=== PATIENT | female | born 1965 | race African-American/Black ===

== ENCOUNTER 2016-04-30 06:35 | Day surgery (SDC) | payer OTHER ==
[2016-04-29 16:53] VITALS: BMI 31.6
[2016-04-30] MEDS ORDERED: DEXAMETHASONE SOD PHOSPHATE 4 MG/1 ML VIAL ONE (07:28)
[2016-04-30] MEDS ORDERED: LIDOCAINE HCL 2% (20ML MULTI-DOSE VIAL) NR ONE (07:29)
[2016-04-30] MEDS ORDERED: MIDAZOLAM HCL 2 MG/2 ML SINGLE DOSE VIAL ONE (07:29)
[2016-04-30] MEDS ORDERED: PROPOFOL 20 ML ONE (07:30)
[2016-04-30] MEDS ORDERED: oxyCODONE HCL 5 MG TABLET PO PRN (08:48)
[2016-04-30] MEDS ORDERED: ONDANSETRON 4 MG/2 ML VIAL IVPUSH PRN (08:48)
[2016-04-30] MEDS ORDERED: ACETAMINOPHEN 1000 MG/100 ML VIAL (NON FORMULARY) IVPB PRN (08:49)
[2016-04-30] MEDS ORDERED: LACTATED RINGERS SOLUTION 1,000 ML IV SCH (09:00)
[2016-04-30 09:34] VITALS: TEMP 97.9
[2016-04-30] MEDS ORDERED: oxyCODONE HCL 5 MG TABLET ONE (10:02)
[2016-04-30 11:15] VITALS: PULSE 78
--- NOTE | 2016-04-30 11:22 | OP ---
DATE OF OPERATION: 04/30/2016 PREOPERATIVE DIAGNOSIS: Postmenopausal menorrhagia, fibroid uterus. OPERATIVE PROCEDURE: Hysteroscopy, dilatation and curettage, and endocervical curettage. SURGEON: Corina Hull MD ANESTHESIA: MAC. ESTIMATED BLOOD LOSS: Approximately 10 mL. ANESTHESIOLOGIST: Dr. Gregg Mancuso DESCRIPTION OF PROCEDURE: This patient was brought to the operating room, placed in the supine position, given anesthesia by Dr. Mancuso and then, placed in the lithotomy position. The patient was examined. The uterus was noted to be enlarged. Typical fibroid uterus measuring 12-14 weeks size. Adnexa not palpable. The speculum was placed into the vagina after the vagina had been prepped and draped. The anterior lip of the cervix was grasped with a tenaculum. The uterus was sounded to 11 cm. The cervix was dilated with Fisher dilators. Hysteroscopy was carried out. Hysteroscopy revealed the endometrial cavity to be bloody with clots. Visualization was poor because of the blood. After this was done, the cervix was then dilated with Fisher dilators until a medium-sized curette was used to do the dilatation and curettage. A scanty amount of tissue was obtained. Blood clots were obtained with the dilatation and curettage. Hemostasis was good. An endocervical curettage was carried out. Hemostasis was good. A followup hysteroscopy after the procedure was completed revealed hemostasis was good and the visual aspects of the internal endometrium were poor because of the blood clouding the area. However, the patient did well, and she was transferred to the recovery room with good vital signs, no complications noted. CORINA HULL M.D. [id number]
[2016-04-30 11:57] VITALS: BP 127/76
--- NOTE | 2016-05-01 10:34 | PATH ---
Surgical Pathology Report Patient Name: ROHAN HAND [facility]. Rec. #: [id number] /Age/Gender: 1965 (Age: 51) / F Account: [id number] Location: [facility] SURGICAL Taken: 04/30/2016 Received: 04/30/2016 Reported: 05/01/2016 Physicians: Tobias Pryor M.D. Specimen(s) Received A: ENDOMETRIAL CURETTINGS B: ENDOCERVICAL CURETTINGS Clinical History Menorrhagia, post menopausal bleeding, fibroids Final Diagnosis A. ENDOMETRIUM, CURETTING: ENDOMETRIAL TISSUE WITH EXTENSIVE STROMAL AND GLANDULAR BREAKDOWN. BENIGN SQUAMOUS EPITHELIUM, ENDOCERVICAL MUCOSA, AND CLOTTED BLOOD PRESENT. NO ENDOMETRIAL HYPERPLASIA OR CARCINOMA IDENTIFIED. B. ENDOCERVIX, CURETTING: SCANT BENIGN SQUAMOUS EPITHELIUM, PORTIONS OF STROMA, AND BENIGN GLANDULAR EPITHELIUM. Electronically Signed Thor De La O M.D. Gross Description A. Received in formalin, labeled "endometrial curettings," is a 3.7 x 2.5 x 0.3 cm aggregate of frederick red soft tissue fragments admixed with blood clot. The formalin is filtered and the specimen is entirely submitted in 2 cassettes. B. Received in formalin, labeled "endocervical curettings," and a 1.0 x 0.6 x 0.2 cm aggregate of frederick red soft tissue fragments admixed with blood clot. The formalin is filtered and the specimen is entirely submitted in one cassette. 04/30/201604/30/2016
== END 2016-04-30 11:58 | disposition home or self-care (01) ==
LOC: JASU-SURG 06:35
PROVIDERS: ATTEND Obstetrics & Gynecology
PROC: 0UDB8ZX Extraction of Endometrium, Via Natural or Artificial Opening Endoscopic, Diagnostic (ICD-10-PCS; principal; 2016-04-30 08:00)
DX: N95.0 Postmenopausal bleeding (principal); D25.9 Leiomyoma of uterus, unspecified
CPT/HCPCS: 84703; 88305-TC; 94760

== ENCOUNTER 2016-12-21 11:05 | Inpatient (IN) | payer OTHER ==
--- NOTE | 2016-12-21 13:16 | PDOC ---
History of Present Illness - General History Source: Patient Exam Limitations: No Limitations - History of Present Illness Initial Comments: 12/21/16 14:26 Patient is a 51 year old female with no significant past medical history who presents to the ED with complaints of diffuse abdominal pain that began wednesday afternoon. Patient reports abdominal pain began suddenly on wednesday and has been constant throughout the weekend. She reports the abdominal pain is a localized sharp pain that is rated a 10/10 in intensity. Denies chest pain, SOB. Denies fevers, chills. Denies out of state travel. Denies contact with sick individuals. Denies dysuria, constipation, diarrhea. Denies any other symptoms. Allergies: None Social history: No smoking. No alcohol. No illicit drugs. Surgical history: None PMD: Dr. Manzo <Chaitanya Trotter - Last Filed: 12/21/16 18:05> <Alberto Mancuso - Last Filed: 12/21/16 18:20> - General Chief Complaint: Pain, Acute Stated Complaint: ABD PAIN (PCP SENT) Time Seen by Provider: 12/21/16 13:16 Past History <Chaitanya Trotter - Last Filed: 12/21/16 18:05> - Past Medical History Anemia: Yes Asthma: No Cancer: No Cardiac Disorders: No CVA: No COPD: No CHF: No Dementia: No Diabetes: No GI Disorders: No Disorders: No HTN: No Hypercholesterolemia: No Liver Disease: No Seizures: No Thyroid Disease: No - Surgical History Abdominal Surgery: No Appendectomy: No Cardiac Surgery: No Cholecystectomy: No Lung Surgery: No Neurologic Surgery: No Orthopedic Surgery: No - Immunization History Immunization Up to Date: Yes - Suicide/Smoking/Psychosocial Hx Smoking History: Never smoked Have you smoked in the past 12 months: No Hx Alcohol Use: No Drug/Substance Use Hx: No Substance Use Type: None <Alberto Mancuso - Last Filed: 12/21/16 18:20> - Past Medical History Allergies/Adverse Reactions: Allergies Allergy/AdvReac Type Severity Reaction Status Date / Time No Known Drug Allergies Allergy Verified 12/21/16 11:34 Home Medications: Ambulatory Orders Cetirizine HCl [Zyrtec -] 10 mg PO DAILY 04/29/16 Naproxen Sodium [Aleve] 440 mg PO PRN PRN 04/29/16 Review of Systems - Review of Systems Able to Perform ROS?: Yes Comments:: 12/21/16 14:26 GENERAL/CONSTITUTIONAL: No fever or chills. No weakness. HEAD, EYES, EARS, NOSE AND THROAT: No change in vision. No ear pain or discharge. No sore throat. CARDIOVASCULAR: No chest pain or shortness of breath. RESPIRATORY: No cough, wheezing, or hemoptysis. GASTROINTESTINAL: No nausea, vomiting, diarrhea or constipation. GENITOURINARY: No dysuria, frequency, or change in urination. MUSCULOSKELETAL: +Abdominal pain. No joint or muscle swelling or pain. No neck or back pain. SKIN: No rash NEUROLOGIC: No headache, vertigo, loss of consciousness, or change in strength/ sensation. ENDOCRINE: No increased thirst. No abnormal weight change. HEMATOLOGIC/LYMPHATIC: No anemia, easy bleeding, or history of blood clots. ALLERGIC/IMMUNOLOGIC: No hives or skin allergy. All Other Systems: Reviewed and Negative <Chaitanya Trotter - Last Filed: 12/21/16 18:05> *Physical Exam - Vital Signs Last Vital Signs Temp Pulse Resp BP Pulse Ox 97.6 F 100 H 20 125/74 100 12/21/16 11:35 12/21/16 11:35 12/21/16 11:35 12/21/16 11:35 12/21/16 11:35 - Physical Exam Comments: 12/21/16 14:26 GENERAL: Awake, alert, and fully oriented, in no acute distress HEAD: No signs of trauma EYES: PERRLA, EOMI, sclera anicteric, conjunctiva clear ENT: Auricles normal inspection, hearing grossly normal, nares patent, oropharynx clear without exudates. Moist mucosa NECK: Normal ROM, supple, no lymphadenopathy, JVD, or masses LUNGS: Breath sounds equal, clear to auscultation bilaterally. No wheezes, and no crackles HEART: +Tachycardic. Regular rate and rhythm, normal S1 and S2, no murmurs, rubs or gallops ABDOMEN: +Distended. +tener Right lower quadrant. +Tender left lower quadrant. Soft,, normoactive bowel sounds. No guarding, no rebound. No masses EXTREMITIES: Normal range of motion, no edema. No clubbing or cyanosis. No cords, erythema, or tenderness NEUROLOGICAL: Cranial nerves II through XII grossly intact. Normal speech, normal gait SKIN: Warm, Dry, normal turgor, no rashes or lesions noted. <Chaitanya Trotter - Last Filed: 12/21/16 18:05> - Vital Signs Last Vital Signs Temp Pulse Resp BP Pulse Ox 97.6 F 100 H 20 125/74 100 12/21/16 11:35 12/21/16 11:35 12/21/16 11:35 12/21/16 11:35 12/21/16 11:35 <Alberto Mancuso - Last Filed: 12/21/16 18:20> ED Treatment Course - LABORATORY CBC & Chemistry Diagram: 12/21/16 13:30 12/21/16 13:30 - ADDITIONAL ORDERS Additional order review: Laboratory Results 12/21/16 12/21/16 12/21/16 13:32 13:32 13:30 PT with INR 13.00 H INR 1.18 H Sodium 138 Potassium 3.6 Chloride 104 Carbon Dioxide 26 Anion Gap 8 BUN 10 D Creatinine 0.6 D Creat Clearance w eGFR > 60 Random Glucose 93 Calcium 8.9 Total Bilirubin 0.6 D AST 14 L D ALT 10 L D Alkaline Phosphatase 89 Total Protein 7.0 Albumin 2.9 L Lipase 66 L Serum , Qual Negative 12/21/16 13:30 RBC 3.79 MCV 82.1 MCHC 33.0 RDW 14.3 MPV 7.9 D Neutrophils % 70.1 D Lymphocytes % 20.4 D Monocytes % 7.8 Eosinophils % 1.0 Basophils % 0.7 <Chaitanya Trotter - Last Filed: 12/21/16 18:05> - LABORATORY CBC & Chemistry Diagram: 12/21/16 13:30 12/21/16 13:30 <Alberto Mancuso - Last Filed: 12/21/16 18:20> Medical Decision Making - Medical Decision Making 12/21/16 18:[address] Manzo @17:45pm. Awaiting call back. Second page @17:59pm. Awaiting call back. Dr. Day called back @1801pm. Case discussed. <Chaitanya Trotter - Last Filed: 12/21/16 18:05> *DC/Admit/Observation/Transfer - Attestations Scribe Attestion: 12/21/16 14:27 Documentation prepared by Chaitanya Trotter, acting as medical file clerk for Alberto Mancuso MD/DO. <Chaitanya Trotter - Last Filed: 12/21/16 18:05> - Discharge Dispostion Admit: Yes - Attestations Physician Attestion: 12/21/16 13:16 I, Dr. Alberto Mancuso, attest that this document has been prepared under my direction and personally reviewed by me in its entirety. I further attest, that it accurately reflects all work, treatment, procedures and medical decision -making performed by me. <Alberto Mancuso - Last Filed: 12/21/16 18:20> Diagnosis at time of Disposition: Metastatic disease Abdominal pain Qualifiers: Abdominal location: unspecified location Qualified Code(s): R10.9 - Unspecified abdominal pain Ascites Qualifiers: Ascites type: other type Qualified Code(s): R18.8 - Other ascites - Discharge Dispostion Condition at time of disposition: Unchanged/Unknown - Referrals Referrals: Allison aMnzo MD [Primary Care Provider] -
[2016-12-21 13:40] LABS: BASOPHIL 0.7 % (0-2.0); MCH 27.1 pg (25.7-33.7); MEAN CELL VOLUME 82.1 fl (80-96); MEAN PLT VOLUME 7.9 fl (7.5-11.1); NEUTROPHILS 70.1 % (42.8-82.8); PLATELET COUNT 288 K/MM3 (134-434); RDW 14.3 % (11.6-15.6); WHITE BLOOD COUNT 5.2 K/mm3 (4.0-10.0)
[2016-12-21 13:59] LABS: INR 1.18 (0.82-1.09)
[2016-12-21 14:01] LABS: ALBUMIN 2.9 g/dl (3.4-5.0); ANION GAP 8 (8-16); BILIRUBIN,TOTAL 0.6 mg/dL (0.2-1.0); CALCIUM 8.9 mg/dL (8.5-10.1); CO2 26 mmol/L (21-32); CREATININE 0.6 mg/dL (0.55-1.02); GLUCOSE,RANDOM 93 mg/dL (74-106); SGOT/AST 14 U/L (15-37); SGPT/ALT 10 U/L (12-78)
[2016-12-21 14:02] LABS: ALK PHOS 89 U/L (45-117)
[2016-12-21] MEDS: ACETAMINOPHEN 325 MG TABLET (FP) PO PRN (23:23)
[2016-12-21 23:37] VITALS: BMI 33.7
[2016-12-22] MEDS ORDERED: FLU VACCINE QUAD 60 MCG/0.5 ML (MDV 17-18) IM ONE (08:00)
--- NOTE | 2016-12-22 09:40 | HP ---
Admitting History and Physical - Primary Care Physician PCP: Allison Manzo - Admission Chief Complaint: abdominal distension History of Present Illness: for past 5 days developed abdominal distension, poor appetite and some constipation. no nausea, no vomiting, no fever, no chills has been in her usual state of health until now works out regularly, no smoking, no drinking History Source: Patient Limitations to Obtaining History: No Limitations - Past Medical History ...LMP: 04/29/16 Endocrine: Yes: Diabetes Mellitus (resolved after weight loss), Other (Obesity) - Past Surgical History Additional Past Surgical History: gastric sleeve surgery at [facility] in 2013 uterine polyps, s/p D+C Apr 2016 - Smoking History Smoking history: Never smoked Have you smoked in the past 12 months: No - Alcohol/Substance Use Hx Alcohol Use: No - Social History Usual Living Arrangement: Yes: With Spouse History of Recent Travel: No Home Medications - Allergies Allergies/Adverse Reactions: Allergies Allergy/AdvReac Type Severity Reaction Status Date / Time No Known Drug Allergies Allergy Verified 12/21/16 11:34 - Home Medications Home Medications: Ambulatory Orders NK [No Known Home Medication] 12/21/16 Family Disease History - Family Disease History Family Disease History: Diabetes: Father, CA: Mother (lung) Review of Systems - Review of Systems Constitutional: reports: Loss of Appetite. denies: Chills, Fever, Night Sweats , Weakness Eyes: reports: No Symptoms HENT: reports: No Symptoms Neck: reports: No Symptoms Cardiovascular: reports: No Symptoms Respiratory: reports: No Symptoms Gastrointestinal: reports: Bloating, Constipation. denies: Abdominal Pain, Diarrhea, Indigestion, Nausea, Vomiting Genitourinary: reports: No Symptoms Musculoskeletal: reports: No Symptoms Integumentary: reports: No Symptoms Neurological: reports: No Symptoms Endocrine: reports: No Symptoms Hematology/Lymphatic: reports: No Symptoms Psychiatric: reports: No Symptoms Physical Examination Vital Signs: Vital Signs Temperature 98.4 F 12/22/16 01:47 Pulse Rate 102 H 12/22/16 01:47 Respiratory Rate 20 12/22/16 01:47 Blood Pressure 136/66 12/22/16 01:47 O2 Sat by Pulse Oximetry (%) 98 12/21/16 23:42 Constitutional: Yes: Well Nourished, No Distress, Calm Eyes: Yes: WNL, Conjunctiva Clear HENT: Yes: Atraumatic, Normocephalic Neck: Yes: Supple, Trachea Midline Cardiovascular: Yes: Regular Rate and Rhythm Respiratory: Yes: CTA Bilaterally Gastrointestinal: Yes: Normal Bowel Sounds, Soft, Distention, Hypoactive Bowel Sounds, Tenderness (lower abdominal tenderness without rebound or guarding) Musculoskeletal: Yes: WNL Extremities: Yes: WNL Edema: No Peripheral Pulses WNL: Yes Neurological: Yes: WNL Labs: Laboratory Results - last 24 hr 12/21/16 12/21/16 12/21/16 13:30 13:30 13:32 WBC 5.2 D RBC 3.79 Hgb 10.3 L Hct 31.2 L MCV 82.1 MCH 27.1 MCHC 33.0 RDW 14.3 Plt Count 288 D MPV 7.9 D Neutrophils % 70.1 D Lymphocytes % 20.4 D Monocytes % 7.8 Eosinophils % 1.0 Basophils % 0.7 PT with INR INR Sodium 138 Potassium 3.6 Chloride 104 Carbon Dioxide 26 Anion Gap 8 BUN 10 D Creatinine 0.6 D Creat Clearance w eGFR > 60 Random Glucose 93 Calcium 8.9 Total Bilirubin 0.6 D AST 14 L D ALT 10 L D Alkaline Phosphatase 89 Total Protein 7.0 Albumin 2.9 L Lipase 66 L Serum , Qual Negative 12/21/16 13:32 WBC RBC Hgb Hct MCV MCH MCHC RDW Plt Count MPV Neutrophils % Lymphocytes % Monocytes % Eosinophils % Basophils % PT with INR 13.00 H INR 1.18 H Sodium Potassium Chloride Carbon Dioxide Anion Gap BUN Creatinine Creat Clearance w eGFR Random Glucose Calcium Total Bilirubin AST ALT Alkaline Phosphatase Total Protein Albumin Lipase Serum , Qual Imaging - Results Cat Scan: Report Reviewed Problem List - Problems (1) Abdominal pain Code(s): R10.9 - UNSPECIFIED ABDOMINAL PAIN Qualifiers: Abdominal location: unspecified location Qualified Code(s): R10.9 - Unspecified abdominal pain (2) Ascites Code(s): R18.8 - OTHER ASCITES Qualifiers: Ascites type: other type Qualified Code(s): R18.8 - Other ascites Assessment/Plan will discuss CT findings with radiology paracentesis if indicated on CT GI/Ict Customer Support Officer consult requested
--- NOTE | 2016-12-22 09:54 | CON.NEURO ---
Consult Consult Specialty:: Neurology Referred by:: Divine Nolan Reason for Consultation:: Unsteady gait and altered hearing since Wednesday. - History of Present Illness Chief Complaint: Unsteady Gait and sound of drumbeat in her right ear since Wednesday. 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 No confusion, altered consciousness altered sensation, or hallucinations. She sings regularly and was singing quite well on Wednesday. - History Source History Provided By: Patient, Family Member, Medical Record Limitations to Obtaining History: No Limitations - Past Medical History [employer]IE[employer]: Yes: Other (obesity, s/p gastric sleeve with weight loss) ...LMP: 04/29/16 Endocrine: Yes: Diabetes Mellitus (resolved after weight loss), Other (Obesity) - Past Surgical History Additional Surgical History: Gastric sleeve - Alcohol/Substance Use Hx Alcohol Use: No - Smoking History Smoking history: Never smoked Have you smoked in the past 12 months: No - Social History Usual Living Arrangement: With Spouse Occupation: [employer] History of Recent Travel: No Home Medications - Allergies Allergies/Adverse Reactions: Allergies Allergy/AdvReac Type Severity Reaction Status Date / Time No Known Drug Allergies Allergy Verified 12/21/16 11:34 - Home Medications Home Medications: Ambulatory Orders NK [No Known Home Medication] 12/21/16 Family Disease History - Family Disease History Family Disease History: Diabetes: Father, CA: Mother (lung) Physical Exam-Neuro Vital Signs: Vital Signs Temperature 98.4 F 12/22/16 01:47 Pulse Rate 102 H 12/22/16 01:47 Respiratory Rate 20 12/22/16 01:47 Blood Pressure 136/66 12/22/16 01:47 O2 Sat by Pulse Oximetry (%) 98 12/21/16 23:42 Labs: INR, PTT INR 1.18 (0.82-1.09) H 12/21/16 13:32 - Neuro Exam Level Of Consciousness: Yes: Alert, Oriented to Person, Oriented to Place, Oriented to Time (able to recite the months of the year in reverse briskly and acurately) Eyes: Yes: PERRLA Speech: WNL Cranial Nerves II-XII Intact: Yes DTR's: 2+ Left Bicep, 2+ Right Bicep, 2+ Left Tricep, 2+ Right Tricep, 2+ Left Brachioradialis, 2+ Right Brachioradialis Babinski: Absent Response to light touch: Normal Response to pain prick: Normal Coordination: Normal: Finger to Nose, Heel to Alfaro, Precision Finger Tap, Pronator Drift Motor Strength: 5/5: Left Arm, Right Arm, Left Leg, Right Leg Gait: Other (occasional staggers (when turning) and unable to tandem.) Imaging - Results Cat Scan: Report Reviewed (ct abdomen) Problem List - Problems (1) Gait abnormality Assessment/Plan: unclear if central or peripheral, and if central, whether this is structural or metabolic. I'll order MRI brain, with and without gadolinium and B12 levels. If these are negative, I would suggest ENT evaluation. Dr. Ac to f/u tomorrow. Thanks. Jose Evans MD [facility] [phone] Code(s): R26.9 - UNSPECIFIED ABNORMALITIES OF GAIT AND MOBILITY
--- NOTE | 2016-12-22 10:22 | EKG ---
Test Reason : Blood Pressure : / mmHG Vent. Rate : 109 BPM Atrial Rate : 109 BPM P-R Int : 142 ms QRS Dur : 076 ms QT Int : 338 ms P-R-T Axes : 020 004 011 degrees QTc Int : 455 ms SINUS TACHYCARDIA PROBABLE LEFT ATRIAL ABNOEMALITY DECREASE IN QRS VOLTAGE IN LATERAL PRECORDIAL LEADS BASELINE ARTIFACTS WHEN COMPARED WITH ECG OF 29-APR-2016 17:26, VENT. RATE HAS INCREASED BY 40 BPM T WAVES ARE NOW UPRIGHT IN V2 QUESTIONABLE CHANGE IN INITIAL FORCES OF SEPTAL LEADS REPEAT EKG IF CLINICALLY INDICATED Confirmed by JORY ALSTON MD ([id number]) on 12/22/2016 10:22:41 AM Referred By: Confirmed By:JORY ALSTON MD
--- NOTE | 2016-12-22 10:25 | CONSULT ---
- Consultation REQUESTING PROVIDER: Jeff Gross - General Surgery CONSULT REQUEST: We have been asked to surgically evaluate this patient for gastric distension & discomfort PCP: Divine Nolan History Provided By: Patient and medical record Limitations to Obtaining History: No Limitations HPI: Called to eval 51 yo female w/ PMHx noted below. Com[facility] to [facility] ED w/ c/o gastric distension, loss of appetite and abd discomfort. Abd CT identified --> partially distended stomach w/ antral thickening, ascites. Thickened sb loopsin left mid-abd (inflamm vs. infectious). Low attenuation irregular densities in RLQ suggests peritoneal implants also alonf left lateral aspect of abd. Enlarged uterus with multiple fibroids (fundus). Left ovarian cyst. Denies fever, chills, diaphoresis, generalized weakness or malaise. Deneis CP, palpitations or peripheral edema. Denies cough, SOB or PASTRANA. Denies diarrhea, constipation, melena, hematochezia. Denies lymphadenopathy. LMP: 04/29/16 PMHx: DM (resolved s/p surgery) , obesity PSHx: Sleeve Gastrectomy at [facility] 2013, D&C 04/2016 (uterine polyps) Home Med: Denies taking any prescribed or OTC. Allergies: NKDA. ROS: CONSTITUTIONAL: Absent: SEE HPI. weight change CARDIOVASCULAR: Absent: SEE HPI. syncope, palpitations, irregular heart rate, lightheadedness, peripheral edema RESPIRATORY: Absent: SEE HPI. wheezing, stridor, hemoptysis GASTROINTESTINAL:Absent: SEE HPI GENITOURINARY: Absent: dysuria, frequency, urgency, hesitancy, hematuria, flank pain. MUSCULOSKELETAL: Absent: myalgia, arthralgia, joint swelling, back pain, neck pain SKIN: Absent: rash, itching, pallor HEMATOLOGIC/IMMUNOLOGIC: Absent: SEE HPI. easy bleeding, easy bruising NEUROLOGIC: Absent: headache, focal weakness, paresthesias, dizziness, unsteady gait, seizure, mental status changes PSYCHIATRIC: Absent: anxiety, depression, suicidal or homicidal ideation, hallucinations. PE: GENERAL: Awake, alert, oriented, in no acute distress. HEAD: NC. AT. EYES: PERRL, sclera anicteric, conjunctiva clear. NECK: Normal ROM, supple without lymphadenopathy, JVD, or masses. LUNGS: CTA bilat anteriorly COR: RRR ABD: Obese. Softly distended. Hypoactive bowel sounds x4. Mild LLQ/RLQ TTP (no guarding/rebound or rigidity) MUSCULOSKELETAL: No CVAT bilat UE: 2+ pulses, warm, well-perfused. No cyanosis. Cap refill <2 seconds. No peripheral edema. LE: 2+ pulses, warm, well-perfused. No calf tenderness. No peripheral edema. PSYCH: Cooperative. Good eye contact. Appropriate mood and affect. SKIN: Warm, dry, normal turgor, no rashes or lesions noted. Last Vital Signs Temp Pulse Resp BP Pulse Ox 98.4 F 102 H 20 136/66 98 12/22/16 01:47 12/22/16 01:47 12/22/16 01:47 12/22/16 01:47 12/21/16 23:42 CBC, BMP 12/21/16 13:30 12/21/16 13:30 INR, PTT INR 1.18 (0.82-1.09) H 12/21/16 13:32 Hepatic Panel Total Bilirubin 0.6 mg/dL (0.2-1.0) D 12/21/16 13:30 AST 14 U/L (15-37) L D 12/21/16 13:30 ALT 10 U/L (12-78) L D 12/21/16 13:30 Alkaline Phosphatase 89 U/L (45-117) 12/21/16 13:30 Albumin 2.9 g/dl (3.4-5.0) L 12/21/16 13:30 Problem List - Problems (1) Abdominal pain Assessment/Plan: IR --> Dr. Wise to perform paracentesis with pathology today (r/o peritoneal carcinomatosis vs. uterine CA) Recommend [facility] [employer] [facility]ER Consult Medical management per primary team CA 125 ordered Recommend NGT if patient +n/v No General Surgery intervention at this time but will cont to follow Above discussed with Dr. Gross and agrees Code(s): R10.9 - UNSPECIFIED ABDOMINAL PAIN Qualifiers: Abdominal location: unspecified location Qualified Code(s): R10.9 - Unspecified abdominal pain (2) Ascites Code(s): R18.8 - OTHER ASCITES Qualifiers: Ascites type: other type Qualified Code(s): R18.8 - Other ascites Visit type - Case Type Case Type: ED Admission - Emergency Emergency Visit: Yes ED Registration Date: 12/21/16 Care time: The patient presented to the Emergency Department on the above date and was hospitalized for further evaluation of their emergent condition. - New patient This patient is new to me today: Yes Date on this admission: 12/22/16
--- NOTE | 2016-12-22 11:59 | CONSULT ---
Consult Consult Specialty:: Gastroenterology Referred by:: Dr Titus Reason for Consultation:: distended abdomen - History of Present Illness History of Present Illness: A pleasant 51 yo female with acute onset abdominal distension resulting in pressure discomfort. No nausea, vomiting, dysphagia, odynophagia, changes in bowels. No weight loss, fever, chills. No hisoty of liver diases, chronic ETOH, or viral hepatitis. History of uneventful sleeve gastrectomy in 2013. EGD and colonoscopy were done preop and reported by the patient as normal. History of uterine bleeding earlier this year. S/P D&C 04/2016 with negative path. Has uterine fibroids. A CT on revealed thickened gastric wall, moderate ascites, peritonial implants and uterine "masses" described as fibroids. 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 No: GERD, GI Bleed, Inflamatory Bowel Disease, Pancreatitis, Peptic Ulcer Disease Hepatobiliary: No: Cirrhosis, Hepatitis B, Hepatitis C Reproductive: Yes: Fibroids, Other (bleeding, s/p D&C) ...LMP: 04/29/16 Heme/Onc: No: Bleeding Disorder Musculoskeletal: No: Chronic low back pain Rheumatology: Yes: Fibromyalgia. No: Vasculitis ENT: Yes: Sinusitis Endocrine: Yes: Diabetes Mellitus (resolved after weight loss), Other (Obesity) - Past Surgical History Past Surgical History: Yes: Colonoscopy (2012) Additional Surgical History: Gastric sleeve. EGD 2012 - Alcohol/Substance Use Hx Alcohol Use: No - Smoking History Smoking history: Never smoked Have you smoked in the past 12 months: No - Social History Usual Living Arrangement: With Spouse Occupation: [employer] History of Recent Travel: No Home Medications - Allergies Allergies/Adverse Reactions: Allergies Allergy/AdvReac Type Severity Reaction Status Date / Time No Known Drug Allergies Allergy Verified 12/21/16 11:34 - Home Medications Home Medications: Ambulatory Orders NK [No Known Home Medication] 12/21/16 Family Disease History - Family Disease History Family History: Unremarkable Family Disease History: Diabetes: Father, CA: Mother (lung) Review of Systems - Review of Systems Constitutional: denies: Chills, Fever, Lethargy, Unintentional Wgt. Loss HENT: denies: Difficult Swallowing Neck: denies: Lumps, Tenderness Cardiovascular: denies: Chest Pain, Palpitations, Shortness of Breath Respiratory: reports: No Symptoms Gastrointestinal: reports: Bloating, Other (acute abdominal distension). denies : Diarrhea, Dysphagia, Indigestion, Melena, Nausea, Rectal Bleeding, Vomiting, Vomiting Blood Genitourinary: reports: Vaginal Bleeding (d&c 04/2016) Musculoskeletal: denies: Back Pain Integumentary: reports: No Symptoms Endocrine: denies: Unexplained Weight Loss Hematology/Lymphatic: denies: Excessive Bleeding, Swollen Glands Psychiatric: reports: No Symptoms Physical Exam Vital Signs: Vital Signs Temperature 98.4 F 12/22/16 01:47 Pulse Rate 102 H 12/22/16 01:47 Respiratory Rate 20 12/22/16 01:47 Blood Pressure 136/66 12/22/16 01:47 O2 Sat by Pulse Oximetry (%) 98 12/21/16 23:42 Constitutional: Yes: Well Nourished, No Distress, Calm Eyes: Yes: Conjunctiva Clear HENT: Yes: Atraumatic, Normocephalic Neck: Yes: Supple Cardiovascular: Yes: Regular Rate and Rhythm Respiratory: Yes: Regular, CTA Bilaterally Gastrointestinal: Yes: Normal Bowel Sounds, Soft, Distention. No: Palpable Mass , Pulsatile Mass, Tenderness, Tenderness, Epigastrium, Tenderness, Rebound, Vomiting Musculoskeletal: No: Joint Stiffness, Joint Swelling Extremities: Yes: WNL Edema: No Integumentary: No: Jaundice, Rash Neurological: Yes: Alert, Oriented Psychiatric: No: Agitated Imaging - Results Cat Scan: Report Reviewed Problem List - Problems (1) Abnormal abdominal CT scan Code(s): R93.5 - ABN FINDINGS ON DX IMAGING OF ABD REGIONS, INC RETROPERITON (2) Ascites Code(s): R18.8 - OTHER ASCITES Qualifiers: Ascites type: other type Qualified Code(s): R18.8 - Other ascites Assessment/Plan Acute onset moderate ascites, no history of chronic liver disease, liver lesions, CHF. Abnormal peritoneal, uterine and gastric findings on CT. EGD was discussed with the patient and her PEDIATRIC INTENSIVE PHYSICIAN consultation Diagnostic/therapeutic parenthesis Visit type - Emergency Visit Emergency Visit: No - New Patient This patient is new to me today: Yes Date on this admission: 12/22/16 - Critical Care Critical Care patient: No
--- NOTE | 2016-12-22 13:38 | CON.OBG ---
Consult Consult Specialty:: Gynecology Reason for Consultation:: Abdominal Ascietis - History of Present Illness Chief Complaint: 51 yo P2 felt significant expension of abdominal girth on , had indigestion, anorexcia and difficulty with bowel movment, had enema on . Admited to the hospital 12/21/16 after finding of ascitis on CT. Patient just now had Parasthentesis and feels significantly better. 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 No: GERD, GI Bleed, Inflamatory Bowel Disease, Pancreatitis, Peptic Ulcer Disease Hepatobiliary: No: Cirrhosis, Hepatitis B, Hepatitis C ...LMP: 12/09/16 ([id number] day) ...: No ...: 5 (SAB x 3, D&C x 3) ...Para: 2 (c/section x 2) Heme/Onc: No: Anemia Musculoskeletal: No: Chronic low back pain Rheumatology: Yes: Fibromyalgia. No: Vasculitis ENT: Yes: Sinusitis Endocrine: Yes: Diabetes Mellitus (resolved after weight loss), Other (Obesity) - Past Surgical History Past Surgical History: Yes: Colonoscopy (2012), (twice) Additional Surgical History: Gastric sleeve. EGD 2012. 05/2016 Hysteroscopy D& C for irregular bleeding - Alcohol/Substance Use Hx Alcohol Use: No - Smoking History Smoking history: Never smoked Have you smoked in the past 12 months: No - Social History Usual Living Arrangement: With Spouse Occupation: 1[employer]3 [employer] History of Recent Travel: No Home Medications - Allergies Allergies/Adverse Reactions: Allergies Allergy/AdvReac Type Severity Reaction Status Date / Time No Known Drug Allergies Allergy Verified 12/21/16 11:34 - Home Medications Home Medications: Ambulatory Orders NK [No Known Home Medication] 12/21/16 Family Disease History - Family Disease History Family Disease History: Diabetes: Father, CA: Mother (lung) Review of Systems - Review of Systems Constitutional: reports: No Symptoms HENT: reports: No Symptoms Neck: reports: No Symptoms Cardiovascular: reports: No Symptoms Respiratory: reports: No Symptoms Gastrointestinal: reports: Bloating Genitourinary: reports: No Symptoms Breasts: reports: No Symptoms Reported (10/[address] [facility] Radiology negative) Musculoskeletal: reports: No Symptoms Integumentary: reports: No Symptoms Neurological: reports: No Symptoms Endocrine: reports: No Symptoms Hematology/Lymphatic: reports: No Symptoms Psychiatric: reports: No Symptoms Physical Exam-ASIAN STUDIES PROGRAM CHAIR Vital Signs: Vital Signs Temperature 98.4 F 12/22/16 01:47 Pulse Rate 102 H 12/22/16 01:47 Respiratory Rate 20 12/22/16 01:47 Blood Pressure 136/66 12/22/16 01:47 O2 Sat by Pulse Oximetry (%) 98 12/21/16 23:42 Constitutional: Yes: Well Nourished, Calm Eyes: Yes: WNL HENT: Yes: WNL Neck: Yes: WNL Cardiovascular: Yes: WNL Respiratory: Yes: WNL, CTA Bilaterally Gastrointestinal: Yes: WNL, Normal Bowel Sounds, Soft Pelvis: Yes: Mass, Tenderness (Palpable tender fibroid on the Left lower abdomen , reaching level of the umbilicus) External Genitalia: Yes: Normal Uterus: Yes: Enlarged, Tender Adnexa: Not Palpable: Left, Right Breast(s): Yes: WNL Musculoskeletal: Yes: WNL Extremities: Yes: WNL Edema: No Integumentary: Yes: WNL Neurological: Yes: WNL ...Motor Strength: WNL Psychiatric: Yes: WNL Assessment/Plan 51yo P2 with suddenly increased abdominal girth Ascietis on the CT scan s/p Paracentesis will follow Pathology Colonoscopy scheduled for tomorrow Patient has long standing h/o Fibroid Uterus Would recommend pelvic US for comparison with Office Sonograms She had recent 10/[address] Rivas - PAP 11/20/16 neg with neg HPV and 04/2016 negative Endometrial evaluation, via D&C so Metastatic Endometrial CA is unlikely source of ascieties However other ASIAN STUDIES PROGRAM CHAIR pathology: Ovarian, Fallopian tube CA is a possibility Additionally Pancreas, Small bowel and Colon Should be considered as possible source as well I would recommend CA 19-9 and CEA in addition to CA-125 Will follow findings of Parasentesis, Colonoscopy and MRI Recommend to use vein compression devices since risk of blood clotting increased in face of carcinogenesis Office record indicates: Mammogram 12/01/16 negative; PAP 11/20/16 neg with neg HPV US: 11/25/16: Uterus:Non gravid. Size: L-79mm W-90mm H-62mm, Position: Retroflexed, Fundal fibroid: Size: 74 x 72 x 57 mm; Ovaries: Left: Not seen.Right: Suboptimal visualization. L-37mm W-34, H-22mm Vol:10.013mL .
[2016-12-22 14:03] LABS: PLEURAL FLUID APPEARANCE HAZY; PLEURAL FLUID COLOR AMBER; PLEURAL FLUID SOURCE PLEURAL
[2016-12-22 14:39] LABS: GLUCOSE,PLEURAL FLUID 106.334; TOTAL PROTEIN,PLEURAL FLUID 5.409
[2016-12-22 14:49] LABS: CHLORIDE PLEURAL FLUID 108; PLEURAL FLUID BASOPHIL 1 %; PLEURAL FLUID LYMPHOCYTES 23 %; PLEURAL FLUID MACROPHAGES 41 %; PLEURAL FLUID NEUTROPHIL 26 %
[2016-12-22] MEDS: ACETAMINOPHEN 325 MG TABLET (FP) PO PRN ×2 (15:00→21:01)
[2016-12-23] MEDS ORDERED: PROPOFOL 20 ML ONE ×2 (07:43)
[2016-12-23] MEDS ORDERED: LIDOCAINE HCL/PF 2% SDV 5ML VIAL ONE (07:43)
--- NOTE | 2016-12-23 09:25 | PN ---
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 No confusion, altered consciousness altered sensation, or hallucinations. She sings regularly and was singing quite well on Wednesday. 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 (obesity, s/p gastric sleeve with weight loss) ...LMP: 04/29/16 Endocrine: Yes: Diabetes Mellitus (resolved after weight loss), Other (Obesity) - Past Surgical History Additional Surgical History: Gastric sleeve - Alcohol/Substance Use Hx Alcohol Use: No - Smoking History Smoking history: Never smoked Have you smoked in the past 12 months: No - Social History Usual Living Arrangement: With Spouse 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 History of Recent Travel: No Home Medications - Allergies Allergies/Adverse Reactions: Allergies Allergy/AdvReac Type Severity Reaction Status Date / Time No Known Drug Allergies Allergy Verified 12/21/16 11:34 - Home Medications Home Medications: Ambulatory Orders NK [No Known Home Medication] 12/21/16 Family Disease History - Family Disease History Family Disease History: Diabetes: Father, CA: Mother (lung) Physical Exam-Neuro Vital Signs: Vital Signs Temperature 99.4 F 12/23/16 07:57 Pulse Rate 94 H 12/23/16 08:17 Respiratory Rate 18 12/23/16 08:17 Blood Pressure 115/81 12/23/16 08:17 O2 Sat by Pulse Oximetry (%) 100 12/23/16 08:17 Labs: 12/21/16 13:30 12/21/16 13:30 - Neuro Exam Level Of Consciousness: Yes: Alert, Oriented to Person, Oriented to Place, Oriented to Time (able to recite the months of the year in reverse briskly and acurately) Eyes: Yes: PERRLA Speech: WNL Cranial Nerves II-XII Intact: Yes DTR's: 2+ Left Bicep, 2+ Right Bicep, 2+ Left Tricep, 2+ Right Tricep, 2+ Left Brachioradialis, 2+ Right Brachioradialis Babinski: Absent Response to light touch: Normal Response to pain prick: Normal Coordination: Normal: Finger to Nose, Heel to Alfaro, Precision Finger Tap, Pronator Drift Motor Strength: 5/5: Left Arm, Right Arm, Left Leg, Right Leg Gait: Other (occasional staggers (when turning) and unable to tandem.) Imaging - Results Cat Scan: Report Reviewed (ct abdomen) Problem List - Problems (1) Gait abnormality Assessment/Plan: vertigo- likley peripheral, though ? underlying malignancy so will obtain MRI BRAIn P ONC LINDSAY Ac [id number]
--- NOTE | 2016-12-23 09:30 | PN ---
Progress Note (short form) - Note Progress Note: Admitted with abd distension, ascites and unsteady gait s/p abd.paracentesis removed over 3000cc dark sanguineous fluid s/p EGD today which was normal feels better today Vital Signs Period Temp Pulse Resp BP Sys/Barbour Pulse Ox Last 24 Hr 98.7 F-99.4 F 94-113 18-22 110-136/69-87 98-100 [id number] lungs cta Abd soft NT, plapable firm Fibroids/mass in lower abdominal area no edema [id number] Imp new onset ascites of unknown etiology peritoneal lesions, large uterine fibroid EGD normal Plan MRI brain today pathology of ascites fluid will be available today or tomorrow will request oncology evaluation d/w pt, explained that findings are very suspicious of malignancy Problem List - Problems (1) Abdominal pain Code(s): R10.9 - UNSPECIFIED ABDOMINAL PAIN Qualifiers: Qualified Code(s): R10.9 - Unspecified abdominal pain (2) Ascites Code(s): R18.8 - OTHER ASCITES Qualifiers: Qualified Code(s): R18.8 - Other ascites
[2016-12-23] MEDS ORDERED: ENOXAPARIN NA (PORCINE) 40 MG/0.4 ML DISP.SYRIN SQ SCH (10:00)
--- NOTE | 2016-12-23 11:58 | PATH ---
Cytology Non-Gynecological Report Patient Name: ROHAN HAND [facility]. Rec. #: [id number] /Age/Gender: 1965 (Age: 51) / F Account: [id number] Location: [facility] MED/SURG Taken: 12/22/2016 Received: 12/22/2016 Reported: 12/23/2016 Physicians: Angela Olmedo M.D. Specimen(s) Received RIGHT LOWER QUADRANT ASCITES FLUID Clinical History None given Final Diagnosis ABDOMINAL FLUID, RIGHT LOWER QUADRANT, PARACENTESIS: SATISFACTORY FOR EVALUATION BENIGN (NO MALIGNANT CELLS IDENTIFIED) BENIGN AND REACTIVE MESOTHELIAL CELLS, BLOOD, AND WHITE BLOOD CELLS PRESENT. Comment: Recommend correlation with clinical findings and follow up as clinically indicated. This case was discussed with Dr. Nolan on December 23, 2016. Electronically Signed Thor De La O M.D. Gross Description A. Approximately 50 cc of yellow fluid received fixed in 50% alcohol. Two cytofunnels and one cellblock prepared. B. Approximately 6000 cc of yellow fluid received fresh. Two cytofunnels and one cellblock prepared.
--- NOTE | 2016-12-23 12:30 | CONSULT ---
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 Patient seen and examined . 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 No: GERD, GI Bleed, Inflamatory Bowel Disease, Pancreatitis, Peptic Ulcer Disease Hepatobiliary: No: Cirrhosis, Hepatitis B, Hepatitis C ...LMP: 12/09/16 (35kleip7 day) ...: No Musculoskeletal: No: Chronic low back pain Rheumatology: Yes: Fibromyalgia. No: Vasculitis ENT: Yes: Sinusitis Endocrine: Yes: Diabetes Mellitus (resolved after weight loss), Other (Obesity) - Past Surgical History Past Surgical History: Yes: Colonoscopy (2013), (twice) Additional Surgical History: Gastric sleeve. EGD 2012. 05/2016 Hysteroscopy D& C for irregular bleeding - Alcohol/Substance Use Hx Alcohol Use: No - Smoking History Smoking history: Never smoked Have you smoked in the past 12 months: No - Social History Usual Living Arrangement: With Spouse Occupation: [employer] History of Recent Travel: No Home Medications - Allergies Allergies/Adverse Reactions: Allergies Allergy/AdvReac Type Severity Reaction Status Date / Time No Known Drug Allergies Allergy Verified 12/21/16 11:34 - Home Medications Home Medications: Ambulatory Orders NK [No Known Home Medication] 12/21/16 Family Disease History - Family Disease History Family Disease History: Diabetes: Father, CA: Mother (lung) Physical Exam Vital Signs: Vital Signs Temperature 99.4 F 12/23/16 07:57 Pulse Rate 94 H 12/23/16 08:17 Respiratory Rate 18 12/23/16 08:17 Blood Pressure 115/81 12/23/16 08:17 O2 Sat by Pulse Oximetry (%) 100 12/23/16 08:17 Constitutional: Yes: Well Nourished, No Distress, Calm Eyes: Yes: Conjunctiva Clear, EOM Intact HENT: Yes: Atraumatic, Normocephalic Neck: Yes: Supple, Trachea Midline Cardiovascular: Yes: Regular Rate and Rhythm Respiratory: Yes: Regular, CTA Bilaterally Gastrointestinal: Yes: Normal Bowel Sounds, Soft, Abdomen, Obese Breast(s): Yes: WNL, Left, Right Extremities: Yes: WNL Edema: No Integumentary: Yes: WNL Neurological: Yes: Alert, Oriented Imaging - Results Cat Scan: Report Reviewed Assessment/Plan 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 -CT imaging with peritoneal nodules. -Cytology of the ascitic fluid did not show evidence of malignancy -CA 125 elevated -CEA/Ca 19 9 pending -Imaging.Tumor markers suspcious for primary DIRECTOR INPATIENT HEADACHE PROGRAM , ?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 -GI : s/p EGD -normal -will need definitive pathological diagnosis, the best way to obtain this to be determined. ?IR for peritoneal biopsy, ?DIRECTOR INPATIENT HEADACHE PROGRAM lap -d/Rebecca in detail over the phone -will follow closely.
[2016-12-23] MEDS ORDERED: DOCUSATE SODIUM 100 MG CAPSULE (FP) PO ONE (23:15)
[2016-12-24] MEDS ORDERED: PT OWN MED DRAWER 7, Y5N ONE (10:30)
[2016-12-24] MEDS: LORATADINE 10 MG TABLET PO SCH (10:45)
[2016-12-24] MEDS: FERROUS SULFATE PO SCH (10:46)
[2016-12-24] MEDS: MULTIVITAMINS (DAILY MVI) TABLET (FP) PO SCH (10:46)
--- NOTE | 2016-12-24 11:19 | PN ---
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
--- NOTE | 2016-12-24 13:58 | PN ---
Progress Note (short form) - Note Progress Note: Admitted with abd distension, ascites and unsteady gait s/p abd.paracentesis removed over 3000cc dark sanguineous fluid s/p EGD which was normal no new complaints Vital Signs Period Temp Pulse Resp BP Sys/Barbour Pulse Ox Last 24 Hr 98.2 F-99.1 F 96-108 18-18 105-123/64-76 97-98 [id number] lungs cta Abd soft NT, palpable firm Fibroids/mass in lower abdominal area no edema [id number] Laboratory Results - last 24 hr 12/23/16 06:00 Carcinoembryonic Ag 0.7 CA 19-9 Antigen 2 CA 125 494 Imp new onset ascites of unknown etiology peritoneal lesions, large uterine fibroid-carcinomatosis? EGD normal Plan solution maker oncology evaluation d/w pt, explained that findings are very suspicious of malignancy Problem List - Problems (1) Abdominal pain Code(s): R10.9 - UNSPECIFIED ABDOMINAL PAIN Qualifiers: Qualified Code(s): R10.9 - Unspecified abdominal pain (2) Ascites Code(s): R18.8 - OTHER ASCITES Qualifiers: Qualified Code(s): R18.8 - Other ascites
--- NOTE | 2016-12-24 14:54 | SPA.PREOP ---
- PRE-OP NOTE Dx: New onset ascites of unknown etiology, peritoneal implants/seeding, large uterine fibroid-->carcinomatosis? Planned Procedure: Laparoscopic peritoneal biopsy, possible open Surgeon: Jeff Gross Consent: To be obtained by surgeon after risks, benefits and alternatives explained to patient. Last Vital Signs Temp Pulse Resp BP Pulse Ox 99.0 F 108 H 18 113/76 99 12/24/16 14:30 12/24/16 14:30 12/24/16 14:30 12/24/16 14:30 12/23/16 21:00 TUMOR MARKERS 12/22/16 12/23/16 13:20 06:00 Carcinoembryonic Ag 0.7 CA 19-9 Antigen 2 CA 125 Antigen 494.5 H CBC, BMP 12/21/16 13:30 12/21/16 13:30 INR, PTT INR 1.18 (0.82-1.09) H 12/21/16 13:32 - ASSESSMENT/PLAN Problem List - Problems (1) Ascites Assessment/Plan: 1. Make NPO after midnight except PO meds 2. GI/DVT PPX 3. Type and screen 4. Medical optimization / clearance Code(s): R18.8 - OTHER ASCITES Qualifiers: Qualified Code(s): R18.8 - Other ascites Visit type - Case Type Case Type: ED Admission
--- NOTE | 2016-12-24 16:00 | PN ---
Progress Note (short form) - Note Progress Note: PAtient seen and examined Feels well.No complaints Last Vital Signs Temp Pulse Resp BP Pulse Ox 98.6 F 103 H 18 105/70 99 12/24/16 10:52 12/24/16 10:52 12/24/16 10:52 12/24/16 10:52 12/23/16 21:00 Cor: RSR, No murmurs, No gallops Lungs: Clear to P&A Abd: Soft, Normal bowel sounds, No organomegaly Ext:No significant edema Skin: No rashes, Integument intact Labs/Meds reviewed A/P 51 y/o female with CT imaging with peritoneal implants -Cytology of the ascitic fluid did not show evidence of malignancy -CA 125 elevated -CEA/Ca 19 9 normal -Imaging.Tumor markers 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 -GI : s/p EGD -normal to get SECOND FLOOR OPERATOR-ONC consult
--- NOTE | 2016-12-24 17:13 | PN ---
Progress Note (short form) - Note Progress Note: No acute events Denies pain States she is constipated No nausea/vomiting Elevated CA 125 levels Vital Signs Period Temp Pulse Resp BP Sys/Barbour Pulse Ox Last 24 Hr 98.3 F-99.2 F 96-108 18-18 105-140/67-80 98-99 Abd soft CBC,CMP WBC 5.2 K/mm3 (4.0-10.0) D 12/21/16 13:30 RBC 3.79 M/mm3 (3.60-5.2) 12/21/16 13:30 Hgb 10.3 GM/dL (10.7-15.3) L 12/21/16 13:30 Hct 31.2 % (32.4-45.2) L 12/21/16 13:30 MCV 82.1 fl (80-96) 12/21/16 13:30 MCH 27.1 pg (25.7-33.7) 12/21/16 13:30 MCHC 33.0 g/dl (32.0-36.0) 12/21/16 13:30 RDW 14.3 % (11.6-15.6) 12/21/16 13:30 Plt Count 288 K/MM3 (134-434) D 12/21/16 13:30 MPV 7.9 fl (7.5-11.1) D 12/21/16 13:30 Neutrophils % 70.1 % (42.8-82.8) D 12/21/16 13:30 Lymphocytes % 20.4 % (8-40) D 12/21/16 13:30 Monocytes % 7.8 % (3.8-10.2) 12/21/16 13:30 Eosinophils % 1.0 % (0-4.5) 12/21/16 13:30 Basophils % 0.7 % (0-2.0) 12/21/16 13:30 Sodium 138 mmol/L (136-145) 12/21/16 13:30 Potassium 3.6 mmol/L (3.5-5.1) 12/21/16 13:30 Chloride 104 mmol/L (98-107) 12/21/16 13:30 Carbon Dioxide 26 mmol/L (21-32) 12/21/16 13:30 Anion Gap 8 (8-16) 12/21/16 13:30 BUN 10 mg/dL (7-18) D 12/21/16 13:30 Creatinine 0.6 mg/dL (0.55-1.02) D 12/21/16 13:30 Creat Clearance w eGFR > 60 (>60) 12/21/16 13:30 Random Glucose 93 mg/dL (74-106) 12/21/16 13:30 Calcium 8.9 mg/dL (8.5-10.1) 12/21/16 13:30 Total Bilirubin 0.6 mg/dL (0.2-1.0) D 12/21/16 13:30 AST 14 U/L (15-37) L D 12/21/16 13:30 ALT 10 U/L (12-78) L D 12/21/16 13:30 Alkaline Phosphatase 89 U/L (45-117) 12/21/16 13:30 Total Protein 7.0 g/dl (6.4-8.2) 12/21/16 13:30 Albumin 2.9 g/dl (3.4-5.0) L 12/21/16 13:30 Lipase 66 U/L (73-393) L 12/21/16 13:30 Carcinoembryonic Ag 0.7 ng/mL (0.0-4.7) 12/23/16 06:00 CA 19-9 Antigen 2 U/mL (0-35) 12/23/16 06:00 CA 125 Antigen 494.5 U/mL (0.0-38.1) H 12/22/16 13:20 Vitamin B12 452 pg/ml (180-914) 12/22/16 11:20 Serum , Qual Negative 12/21/16 13:32 Continue workup of elevated CA 125 levels and ascites 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
[2016-12-24 21:50] VITALS: TEMP 98.2
[2016-12-25 07:25] LABS: INR 1.22 (0.82-1.09); PROTHROMBIN TIME (PATIENT) 13.5 SEC (9.98-11.88)
[2016-12-25 07:27] LABS: ACTIVATED PTT 26.6 SECONDS (26.9-34.4)
--- NOTE | 2016-12-25 09:21 | PN ---
Progress Note (short form) - Note Progress Note: Ms. Wall continues to experience a "drum beat" in her ear and some unsteadiness (mild). Her neurologic exam is stable. MRI brain reveals no abnormalities, fortunately. Her B12 is in the mid 400 range. We will sign off for now, and I've discussed the negative findings with the patient. She may have some peripheral auriculvestibular dysfunction, and ENT evaluation may be worthwhile. Please call if you have any further questions. I left my card with the patient. Thanks. Jose Evans MD [facility] [phone] Problem List - Problems (1) Gait abnormality Code(s): R26.9 - UNSPECIFIED ABNORMALITIES OF GAIT AND MOBILITY
--- NOTE | 2016-12-25 09:22 | DS ---
Physical Examination Vital Signs: Vital Signs Temperature 98.2 F 12/25/16 05:48 Pulse Rate 99 H 12/25/16 05:48 Respiratory Rate 20 12/25/16 05:48 Blood Pressure 115/61 12/25/16 05:48 O2 Sat by Pulse Oximetry (%) 97 12/24/16 20:42 Constitutional: Yes: Well Nourished, No Distress Eyes: Yes: Conjunctiva Clear, EOM Intact HENT: Yes: Normocephalic Neck: Yes: Trachea Midline Cardiovascular: Yes: Regular Rate and Rhythm Respiratory: Yes: CTA Bilaterally Gastrointestinal: Yes: Normal Bowel Sounds, Soft, Palpable Mass (lower abdominal area), Tenderness Musculoskeletal: Yes: WNL Extremities: Yes: WNL Edema: No Peripheral Pulses WNL: Yes Neurological: Yes: WNL Labs: CBC, BMP 12/21/16 13:30 12/21/16 13:30 Laboratory Results - last 24 hr 12/24/16 12/25/16 15:15 06:58 PT with INR 13.50 H INR 1.22 H PTT (Actin FS) 26.6 L Blood Type A POSITIVE Antibody Screen Negative EKG, Chest CT, abd/pelvic CT reviewed. Discharge Summary Reason For Visit: ASCITES; METASTATIC NEOPLASM Current Active Problems Abdominal pain (Acute) Abnormal abdominal CT scan (Acute) Ascites (Acute) Gait abnormality (Acute) Metastatic disease (Acute) Hospital Course: 51 yo lady admitted for 1 wek history of abdominal girth and fullness. CT showed large uterine fibroids, peritoneal lesions and large amount of ascites. Abdominal tap was negative for malignancy, Ca [address] chest showed small lung nodules which need short term f/up. Patient underwentd wax pumper oncology evaluation, she needs RUY-BSO and debulking, for which she has no medical contraindication. Tentative scheduled date is January 05. Condition: Fair - Instructions Diet, Activity, Other Instructions: f/up in office in 1 week Referrals: Allison Manzo MD [Primary Care Provider] - Disposition: HOME - Home Medications Comprehensive Discharge Medication List: Ambulatory Orders Multivitamins [Multivit ([facility] Formulary)] 1 tab PO DAILY 30 Days 12/25/16
[2016-12-25] MEDS ORDERED: PT OWN MED DRAWER 7, Y5N ONE (10:05)
[2016-12-25] MEDS: LORATADINE 10 MG TABLET PO SCH (10:08)
[2016-12-25] MEDS: MULTIVITAMINS (DAILY MVI) TABLET (FP) PO SCH (10:08)
[2016-12-25] MEDS: FERROUS SULFATE PO SCH (10:08)
--- NOTE | 2016-12-25 11:15 | PN ---
Progress Note (short form) - Note Progress Note: Patient seen and examined. Feels well.No complaints Cor: RSR, No murmurs, No gallops Lungs: Clear to P&A Abd: Soft, Normal bowel sounds, No organomegaly Ext:No significant edema Skin: No rashes, Integument intact Last Vital Signs Temp Pulse Resp BP Pulse Ox 98.2 F 97 H 20 124/68 97 12/25/16 09:00 12/25/16 09:00 12/25/16 09:00 12/25/16 09:00 12/25/16 09:00 12/21/16 13:30 12/21/16 13:30 Current Medications Generic Name Dose Route Start Last Admin Trade Name Freq PRN Reason Stop Dose Admin Acetaminophen 650 mg 12/21/16 23:14 12/22/16 21:01 Tylenol - PO 650 mg Q4H PRN Administration FEVER OR PAIN Loratadine 10 mg 12/24/16 10:00 12/25/16 10:08 Claritin - PO 10 mg DAILY FABRICE Administration Multivitamins/Minerals/Vitamin C 1 tab 12/24/16 10:00 12/25/16 10:08 Tab-A-Vit - PO 1 tab DAILY FABRICE Administration Slow Fe Iron Tablet 1 each 12/24/16 10:00 12/25/16 10:08 45 Mg(Pts Own Iron PO 1 each Tablet) DAILY FABRICE Administration Assessment/plan: 51 y/o female with CT imaging with peritoneal implants -Cytology of the ascitic fluid did not show evidence of malignancy -CA 125 elevated -CEA/Ca 19 9 normal -CT Chest report reviewed, 2 <5mm Lung nodules, right lung, Out pt PET CT/ repeat CT chest in a close interval recommended -No mets in the MRI brain -Imaging/Tumor markers suspicious for ?primary MINE LABORER , ?primary peritoneal. -GI : s/p EGD -normal -pt mentioned that she would be seen by MINE LABORER-ONC consult today.
[2016-12-25 14:24] VITALS: BP 120/73; PULSE 117
--- NOTE | 2016-12-25 16:06 | PN ---
Progress Note (short form) - Note Progress Note: No acute events No nausea Pain controlled Vital Signs Period Temp Pulse Resp BP Sys/Barbour Pulse Ox Last 24 Hr 98.2 F-99.1 F 97-117 18-20 115-124/61-73 97-97 Abd soft CBC, BMP 12/21/16 13:30 12/21/16 13:30 Awaiting Hoop Maker Oncology evaluation
--- NOTE | 2016-12-25 16:11 | CONSULT ---
Consult Consult Specialty:: roving frame tender oncology - History of Present Illness Chief Complaint: abdominal bloating History of Present Illness: 51 yo with c/o abdominal swelling x 3 days. She denies N/V. Normal appetite. Reports BsMs are pencil thin x 2 days. No melena or BRBPR. Presented to ED on 12/21. Had CT abdomen/pelvis which showed ascites, peritoneal implants, fibroid uterus, cystic changes in left ovary. Chest CT negative. Underwent paracentesis which was negative. CA 125 elevated to 494.5. CEA and CA 19-9 normal. EGD was negative. Has known to have fibroids. Menses had been regular, every 30 days, lasting 5-6 days. In May 2016 had heavy VB and underwent D&C which was negative. Most recent menses have been light, lasting 1 day. No abnormal spotting. Denies hot flashes. Pt reports never had colonoscopy. Mammogram 11/25/16 was negative, last pap negative. 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 No: GERD, GI Bleed, Inflamatory Bowel Disease, Pancreatitis, Peptic Ulcer Disease Hepatobiliary: No: Cirrhosis, Hepatitis B, Hepatitis C ...LMP: 12/09/16 ([id number] day) ...: No ...: 5 ...Para: 2 Musculoskeletal: No: Chronic low back pain Rheumatology: No: Vasculitis ENT: Yes: Sinusitis Endocrine: Yes: Other (Obesity) - Past Surgical History Past Surgical History: Yes: (twice), Upper Endoscopy Additional Surgical History: Gastric sleeve. EGD 2012. 05/2016 Hysteroscopy D& C for irregular bleeding - Alcohol/Substance Use Hx Alcohol Use: No - Smoking History Smoking history: Never smoked Have you smoked in the past 12 months: No - Social History Usual Living Arrangement: With Spouse Occupation: [employer] History of Recent Travel: No Home Medications - Allergies Allergies/Adverse Reactions: Allergies Allergy/AdvReac Type Severity Reaction Status Date / Time No Known Drug Allergies Allergy Verified 12/21/16 11:34 - Home Medications Home Medications: Ambulatory Orders Multivitamins [Multivit ([facility] Formulary)] 1 tab PO DAILY 30 Days 12/25/16 Family Disease History - Family Disease History Family Disease History: Diabetes: Father, CA: Mother (lung) Physical Exam Vital Signs: Vital Signs Temperature 98.2 F 12/25/16 09:00 Pulse Rate 117 H 12/25/16 14:22 Respiratory Rate 20 12/25/16 14:22 Blood Pressure 120/73 12/25/16 14:22 O2 Sat by Pulse Oximetry (%) 97 12/25/16 09:00 Constitutional: Yes: Well Nourished, No Distress, Calm Eyes: Yes: WNL HENT: Yes: WNL Neck: Yes: WNL Cardiovascular: Yes: WNL, Regular Rate and Rhythm Respiratory: Yes: WNL, Regular, CTA Bilaterally Gastrointestinal: Yes: WNL, Normal Bowel Sounds, Soft, Ascites, Distention ...Rectal Exam: Yes: WNL Renal/: Yes: WNL, Other (Uterus 18 week size, irregular. No RV masses) Breast(s): Yes: WNL Musculoskeletal: Yes: WNL Extremities: Yes: WNL Edema: No Integumentary: Yes: WNL Neurological: Yes: WNL ...Motor Strength: WNL Psychiatric: Yes: WNL, Alert, Oriented Assessment/Plan 51 yo with ascites, elevated CA 125, 18 week fibroid uterus, peritoneal implants on CT scan. I have reviewed the images. I have discussed with Elyssa that I recommend colonoscopy since she does note change in stool caliber. She will do this next week. I have also discussed with her RUY/BSO, possible tumor debulking/staging. This will likely occur through a vertical midline incision. Risks, benefits, indications, alternatives were discussed with Elyssa. All questions were answered. Informed consent was signed. We have contacted the OR to schedule for Jan 05 and waiting for confirmation.
--- NOTE | 2016-12-31 16:01 | PROC ---
Endoscopy Procedure Endoscopy procedure completed. Please see scanned procedure report.
== END 2016-12-25 16:28 | disposition home or self-care (01) | DRG 948 ==
LOC: JER 11:05 → JERBED 18:20 → J7W 22:17
PROVIDERS: ADMIT Internal Medicine; ATTEND Internal Medicine
PROC: 0W9G3ZX Drainage of Peritoneal Cavity, Percutaneous Approach, Diagnostic (ICD-10-PCS; principal; 2016-12-22)
PROC: 0DJ08ZZ Inspection of Upper Intestinal Tract, Via Natural or Artificial Opening Endoscopic (ICD-10-PCS; 2016-12-23)
DX: R18.8 Other ascites (principal); E66.8 Other obesity; Z68.33 Body mass index [BMI] 33.0-33.9, adult; Z93.1 Gastrostomy status; R26.81 Unsteadiness on feet; D25.9 Leiomyoma of uterus, unspecified; R91.1 Solitary pulmonary nodule; K44.9 Diaphragmatic hernia without obstruction or gangrene
CPT/HCPCS: 36415; 70553-TC; 71250-TC; 74177-TC; 76942-TC; 80053; 82042; 82150; 82378; 82438; 82607; 82945; 83615; 83690; 84157; 84311; 84703; 85025; 85610; 85730; 86301; 86304; 86850; 86900; 86901; 87070; 87075; 87102; 87116; 87205; 87206; 87210; 88108; 88305-TC; 89051; 90688; 93005; 93010; 99283-25; G0008; Q9967

== ENCOUNTER 2017-01-05 10:27 | Inpatient (IN) | payer OTHER ==
[2016-12-31 19:14] VITALS: BMI 31.6
[2017-01-05 10:45] LABS: MCH 26.3 pg (25.7-33.7); MCHC 32.6 g/dl (32.0-36.0); MEAN CELL VOLUME 80.8 fl (80-96); MEAN PLT VOLUME 6.8 fl (7.5-11.1); PLATELET COUNT 532 K/MM3 (134-434); RDW 14.4 % (11.6-15.6); WHITE BLOOD COUNT 7.6 K/mm3 (4.0-10.0)
[2017-01-05] MEDS ORDERED: ROPIVACAINE HCL 0.5% 30ML VIAL ONE (11:02)
[2017-01-05] MEDS ORDERED: MIDAZOLAM HCL 2 MG/2 ML SINGLE DOSE VIAL ONE ×2 (11:05)
--- NOTE | 2017-01-05 11:26 | HP ---
History & Physical Update - History History: No Change - Physical Physical: No Change - Assessment Assessment: No Change - Plan Plan: No Change (here today for elective RUY/BSO, tumor debulking. Initial H&P completed 01/01/[address] Divine Nolan (PCP))
[2017-01-05] MEDS ORDERED: CEFAZOLIN 2 GM in DEXTROSE 5%-WATER - 100 ML IVPB ONE (11:27)
[2017-01-05] MEDS ORDERED: ROCURONIUM BROMIDE 50 MG/5 ML VIAL ONE ×2 (12:03→14:23)
[2017-01-05] MEDS ORDERED: PROPOFOL 20 ML ONE (12:03)
[2017-01-05] MEDS: ceFAZolin SODIUM 1 GM VIAL IVPB ONE ×2 (12:12→19:10)
[2017-01-05] MEDS ORDERED: ceFAZolin SODIUM 1 GM VIAL ONE (12:23)
[2017-01-05] MEDS ORDERED: GLYCOPYRROLATE 0.2 MG/1 ML VIAL ONE (15:01)
[2017-01-05] MEDS ORDERED: NEOSTIGMINE METHYLSULFATE 0.5 MG/ML - 10 ML MDV ONE (15:01)
--- NOTE | 2017-01-05 15:26 | SURG ---
Surgery Stamp Presser Note Stamp Presser: Al Flores PA-C Date of Service: 01/05/17 Diagnosis: Pre-Operative Diagnosis: Ascites, elevated CA-125 Post-Operative Diagnosis: Stage 3C ovarian carcinoma Procedure: Total abdominal hysterectomy, bilateral salpingoophorectomy, radical tumor debulking, omentectomy, bilateral ureterolysis I was present for the entirety of the operative procedure. For further detail, please refer to operative report. Visit type - Case Type Case Type: Scheduled Admission - New patient This patient is new to me today: Yes Date on this admission: 01/05/17
[2017-01-05] MEDS ORDERED: CEFAZOLIN 2 GM/D5W 50 ML IVPB SCH (15:30)
[2017-01-05] MEDS: HYDROmorphone *PCA* 10MG/50ML DISP.SYRIN PCA SCH (15:30)
[2017-01-05] MEDS ORDERED: ACETAMINOPHEN 1000 MG/100 ML VIAL (NON FORMULARY) IVPB ONE (15:33)
[2017-01-05] MEDS ORDERED: DEXAMETHASONE SOD PHOSPHATE 4 MG/1 ML VIAL IVPUSH PRN (15:40)
[2017-01-05] MEDS ORDERED: PROMETHAZINE HCL 25 MG/1 ML VIAL IVPB PRN (15:40)
[2017-01-05] MEDS ORDERED: ONDANSETRON 4 MG/2 ML VIAL IVPUSH PRN ×2 (15:40)
--- NOTE | 2017-01-05 15:40 | OP ---
Operative Note - Note: Operative Date: 01/05/17 Pre-Operative Diagnosis: Ascites, elevated CA-125 Operation: Total abdominal hysterectomy, bilateral salpingoophorectomy, radical tumor debulking, omentectomy, bilateral ureterolysis Findings: Right ovary with multiple friable tumor nodules and 4 cm cystic mass. Left ovary and tube with tumor nodules. Uterus 14 week size and densely adherent to anterior abdominal wall. 8 cm solid tumor mass in pelvis, friable, adherent to culdesac and sigmoid colon. 3 cm tumor nodules on omentum. Diaphragms smooth, posterior liver edge with tumor nodules which were removed approximately 2 cm. Small bowel no evidence of tumor. 3 cm plaque on sigmoid colon. 4 cm tumor mass on left colon/mesentery which was removed. 3 cm tumor nodules on omentum near splenic flexure, which were removed. 7 liters of clear serous ascites. Post-Operative Diagnosis: Other (Stage 3C ovarian carcinoma) Surgeon: Zandra Durbin Litigation Paralegal: Al Flores Anesthesia: General Specimens Removed: Uterus, cervix, bilateral tubes and ovaries, omentum, pelvic tumor, liver nodule, ascites. Estimated Blood Loss (mls): 900 Drains & Tubes with Location: none Operative Report Dictated: Yes
--- NOTE | 2017-01-05 17:23 | OP ---
DATE OF OPERATION: 12/27/2016 PREOPERATIVE DIAGNOSIS: Ascites and elevated CA125. POSTOPERATIVE DIAGNOSIS: Stage 3c ovarian carcinoma. PROCEDURE: Total abdominal hysterectomy, bilateral salpingoophorectomy, radical tumor debulking, total omentectomy, bilateral ureterolysis. SURGEON: Zandra Durbin M.D. ABRASIVE GRADER: Billy Diaz ANESTHESIA: General endotracheal and bilateral TAP blocks. ESTIMATED BLOOD LOSS: 900 mL. COMPLICATIONS: None. INDICATION: This is a 51-year-old with history of increasing abdominal girth. She was admitted to the hospital and a CT scan of the abdomen and pelvis which showed ascites, large fibroid uterus, and peritoneal nodules. CA125 was elevated at over 490. She had a paracentesis performed, which was negative for malignancy. She had a colonoscopy, which was negative. Preoperatively, the patient was counseled for surgical management, risks, benefits, and alternatives were discussed with the patient. All questions were answered. Informed consent was signed. FINDINGS: There was approximately 7 L of clear serous ascites. The uterus was approximately 14 size and adherent to the anterior abdominal wall from previous section. The right ovary contained multiple friable tumor nodules and a 4-cm cystic lesion. There was an 8-cm friable mass in the cul-de-sac adherent to the sigmoid colon. The left ovary was small, but appeared to have some tumor nodules in the pelvic side wall. In the mid sigmoid colon, there was approximately 4-cm tumor mass on the mesentery bordering on the mucosa. This was able to be removed. The diaphragms were cleared. There was maybe one 2-mm granular lesion. On the posterior liver, there were some tumor nodules which were approximately 2-3 cm, and they were removed. In the splenic flexure, there was approximately 3-cm tumor nodule which was removed. The omentum had just several 2-3 cm tumor implants, but otherwise appeared majority was free of tumor. Small bowel was no evidence of tumor. The mesentery was free as well. At the remainder of the case, there was an approximately 3 x 3 cm tumor plaque on the rectosigmoid colon in the cul-de-sac. There were some other residual on the sigmoid colon epiploica which appeared infiltrated with tumor nodule. These were cauterized. At the end of the procedure, the residual disease was along the left colon epiploica. There were some tumor nodules which appeared to be rising from the epiploica approximately 1 cm, and the plaque of tumor on the sigmoid colon from which the large pelvic tumor mass was removed. Otherwise the upper abdomen was clean, as was the small bowel. The surface of the liver was free of disease. DESCRIPTION OF PROCEDURE: This patient was taken to the operating room, placed in the dorsal supine position. General endotracheal anesthesia was obtained without difficulty. She had previously in the preoperative area had received a bilateral TAP block. She was prepped and draped in the normal sterile fashion. Reilly catheter was placed in the bladder. Vertical midline skin incision was made with the scalpel , carried down to the underlying fascia. The fascia was opened in the midline and at this point we encountered serous fluid, approximately 7 L was drained at this point of serous fluid. Incision was extended inferiorly and superiorly with excellent visualization of the bowel and the bladder well below. The incision was extended above the umbilicus after it was identified that there was tumor also in the upper abdomen. The bowel was packed away with moist laparotomy sponges and the Omni retractor was placed. The right retroperitoneum was opened. The right ureter was dissected away from the infundibulopelvic ligament. The right infundibulopelvic ligament was doubly clamped, transected, and ligated with free tires of 0 Vicryl and suture ligated with 0 Vicryl. The right round ligament was suture ligated and divided, and this was carried along the anterior peritoneum, dissecting the peritoneum along with tumor nodule off the bladder. A bladder flap was created. The uterus was densely adherent anteriorly to the anterior abdominal wall. The left retroperitoneum was opened. There were tumor nodules near here as well. The left retroperitoneum was opened. The left ureter was dissected away from the infundibulopelvic ligament and tumor. The infundibulopelvic ligament was doubly clamped, transected, and ligated with free tie of 0 Vicryl, suture ligated with 0 Vicryl. The round ligament was divided, and the uterus was dissected off the anterior abdominal wall, to which it was densely adherent like cement. The uterine arteries bilaterally were able to be skeletonized. They were clamped with Zeppelin clamps, transected, and suture ligated with 0 Vicryl. The cardinal ligaments were serially clamped, transected, and suture ligated. The uterosacral ligaments were clamped, transected, and suture ligated with 0 Vicryl. Two Zeppelin clamps were placed distally across the cervix, again the bladder was dissected off the cervix and upper vagina. Two Zeppelin clamps were placed distally across the cervix, and the uterus and cervix were transected from the vagina. There was a remainder of some ectocervix on the anterior vaginal cuff which was excised and sent separately. The vaginal cuffing were closed with 0 Vicryl and a Anna stitch. Remainder of the vaginal cuff was closed in a running, locked fashion using 0 Vicryl. Excellent hemostasis was seen. At this point, we turned our attention to the large tumor mass in the cul-de-sac, which was removed using blunt dissection and Bovie electrocautery. It was handed off the field. The retractors were replaced, and attention was turned to omentum. The omentum was dissected off the transverse colon and the lesser sac was opened. The omentum was dissected off the stomach, and using the Ligasure device it was clamped, cauterized, and transected. This was carried across. Excellent hemostasis was seen. There were some tumor nodules near the splenic flexure and omentum. These were also removed. Excellent hemostasis was assured. We irrigated extensively in the bilateral upper quadrants. The posterior liver edge, there were noted to be some tumor nodules. These were removed. Excellent hemostasis was seen as well. Abdomen and pelvis were thoroughly irrigated. The tumor along the descending colon in the mesentery which encroached very closely on the mucosa was able to be removed without disrupting the bowel. The tumor nodules were removed in their entirety. There were some epiploica which had also tumor nodules which were cauterized and removed as close to the bowel of possible without risk of injury to the bowel. The pelvis and abdomen was thoroughly irrigated and noted to be hemostatic. Surgicel was placed on the vaginal cuff and the left pelvic sidewall. All instruments were removed from the patient's abdomen. Sponge, needle, instrument counts were correct x2. The fascia was closed in a running mass fashion using number 1 looped PDS. Subcutaneous fat was irrigated with saline. Skin was closed with megan. There was a defect in the umbilicus which was closed with 4-0 Monocryl. Patient was extubated and transferred in stable condition to the PACU. [id number] MTDD
[2017-01-05] MEDS ORDERED: KETOROLAC TROMETHAMINE 30 MG/1 ML VIAL ONE ×2 (18:45→22:13)
[2017-01-05] MEDS ORDERED: ACETAMINOPHEN INJECTION 100 ML IVPB ONE (18:45)
[2017-01-05 20:16] LABS: MCH 27.2 pg (25.7-33.7); MCHC 33.3 g/dl (32.0-36.0); MEAN CELL VOLUME 81.6 fl (80-96); MEAN PLT VOLUME 7.4 fl (7.5-11.1); PLATELET COUNT 386 K/MM3 (134-434); RDW 14.4 % (11.6-15.6); WHITE BLOOD COUNT 16.1 K/mm3 (4.0-10.0)
[2017-01-05] MEDS: ALBUMIN HUMAN 25% 12.5 GM/50 ML VIAL IVPB SCH ×2 (21:30→21:31)
[2017-01-05] MEDS: KETOROLAC TROMETHAMINE 30 MG/1 ML VIAL IVPUSH SCH (22:10)
[2017-01-06 07:11] LABS: MCH 27.1 pg (25.7-33.7); MCHC 33.7 g/dl (32.0-36.0); MEAN CELL VOLUME 80.3 fl (80-96); MEAN PLT VOLUME 7.2 fl (7.5-11.1); PLATELET COUNT 321 K/MM3 (134-434); RDW 14.3 % (11.6-15.6); WHITE BLOOD COUNT 12.9 K/mm3 (4.0-10.0)
[2017-01-06 07:44] LABS: ALBUMIN 1.5 g/dl (3.4-5.0); ALK PHOS 51 U/L (45-117); ANION GAP 7 (8-16); BILIRUBIN,TOTAL 0.8 mg/dL (0.2-1.0); CALCIUM 7.7 mg/dL (8.5-10.1); CO2 28 mmol/L (21-32); CREATININE 0.6 mg/dL (0.55-1.02); GLUCOSE,RANDOM 150 mg/dL (74-106); SGOT/AST 30 U/L (15-37); SGPT/ALT 12 U/L (12-78); TOT PROT 3.8 g/dl (6.4-8.2)
--- NOTE | 2017-01-06 08:37 | PN ---
Progress Note (short form) - Note Progress Note: no complaints, other than thirst. Vital Signs Period Temp Pulse Resp BP Sys/Barbour Pulse Ox Last 24 Hr 97.8 F-98.9 F 100-132 12-74 100-146/57-96 100-100 CBC, BMP 01/06/17 05:50 01/06/17 05:50 S1S2 RRR Lungs cta Abd dressing dry intact, +BS no edema aaox3 IMP POD#1 RUY-BSO, debulking of intraabdominal tumors, omentectomy, bilateral ureterolysis blood loss c/w surgical blood loss post of care as per sg.team dc goode path f/up will need chemo therapy
[2017-01-06] MEDS: ENOXAPARIN NA (PORCINE) 40 MG/0.4 ML DISP.SYRIN SQ SCH (09:35)
[2017-01-06] MEDS: KETOROLAC TROMETHAMINE 30 MG/1 ML VIAL IVPUSH SCH ×3 (09:37→21:37)
--- NOTE | 2017-01-06 10:30 | PN ---
Progress Note (short form) - Note Progress Note: POD #1 -s/p exploratory laparotomy, hysterectomy, omentectomy, staging under general anesthesia with bilateral TAP blocks and dilaudid FORESTRY EXTENSION SPECIALIST for post-op pain management. Pt. doing well, resting comfortably in bed. No complaints. Good pain control. No apparent anesthetic complications noted. Will continue FORESTRY EXTENSION SPECIALIST for now and reevaluate tomorrow.
[2017-01-06] MEDS: HYDROmorphone *PCA* 10MG/50ML DISP.SYRIN PCA SCH (16:09)
[2017-01-06] MEDS: LACTATED RINGERS SOLUTION 1,000 ML IV SCH (16:09)
[2017-01-06] MEDS: ACETAMINOPHEN 325 MG TABLET (FP) PO SCH ×2 (16:10→19:00)
--- NOTE | 2017-01-06 17:47 | CONSULT ---
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 No: GERD, GI Bleed, Inflamatory Bowel Disease, Pancreatitis, Peptic Ulcer Disease Rheumatology: Yes: Fibromyalgia ENT: Yes: Sinusitis Endocrine: Yes: Diabetes Mellitus (resolved after weight loss), Other (Obesity) - Past Surgical History Past Surgical History: Yes: Colonoscopy (2012), (twice) Additional Surgical History: Gastric sleeve. EGD 2012. 05/2016 Hysteroscopy D& C for irregular bleeding - Smoking History Smoking history: Never smoked - Social History Usual Living Arrangement: With Spouse Occupation: [employer] Home Medications - Allergies Allergies/Adverse Reactions: Allergies Allergy/AdvReac Type Severity Reaction Status Date / Time No Known Drug Allergies Allergy Verified 12/21/16 11:34 - Home Medications Home Medications: Ambulatory Orders NK [No Known Home Medication] 12/21/16 Home Medication List Medication Instructions Recorded Confirmed Type Cetirizine HCl [Zyrtec -] 10 mg PO DAILY PRN 12/31/16 01/05/17 History Active Medications Generic Name Dose Route Start Last Admin Trade Name Freq PRN Reason Stop Dose Admin Acetaminophen 650 mg 01/05/17 18:00 01/06/17 16:10 Tylenol - PO Not Given Q6HPO FABRICE Dexamethasone Sodium Phosphate 4 mg 01/05/17 15:40 Decadron Injection - IVPUSH ONCE PRN NAUSEA AND/OR VOMITING Diphenhydramine HCl 12.5 mg 01/05/17 15:40 Benadryl Injection - IVPUSH ONCE PRN FOR ITCHING Enoxaparin Sodium 40 mg 01/06/17 10:00 01/06/17 09:35 Lovenox - SQ 40 mg DAILY FABRICE Administration Hydromorphone HCl 0 mg 01/05/17 15:45 01/06/17 16:09 Dilaudid [place] Upholsterer - PUBLIC TRANSIT SPECIALIST 01/12/17 15:41 Not Given PUBLIC TRANSIT SPECIALIST FABRICE Protocol Lactated Ringer's 1,000 mls @ 125 mls/hr 01/05/17 15:45 01/06/17 16:09 Lactated Ringers Solution IV 125 mls/hr ASDIR FABRICE Administration Ketorolac Tromethamine 30 mg 01/05/17 21:00 01/06/17 16:11 Toradol Injection - IVPUSH 01/10/17 20:59 30 mg Q6H-IV FABRICE Administration Promethazine HCl 12.5 mg 01/05/17 15:40 Phenergan Injection - IVPB Q6H PRN NAUSEA AND/OR VOMITING Family Disease History - Family Disease History Family Disease History: Diabetes: Father, CA: Mother (lung) Physical Exam Vital Signs: Last Vital Signs Temp Pulse Resp BP Pulse Ox 98.8 F 102 H 20 104/61 100 01/06/17 14:00 01/06/17 14:00 01/06/17 14:00 01/06/17 14:00 01/06/17 10:00 Cor: RSR, No murmurs, No gallops Lungs: Clear to P&A Abd: incision healing Ext:No significant edema Skin: No rashes, Integument intact Abnormal Lab Results 01/05/17 01/05/17 01/06/17 10:37 19:55 05:50 WBC 16.1 H D 12.9 H Hgb 9.9 L D Hct 29.4 L D MPV 7.4 L 7.2 L Anion Gap Random Glucose Calcium Total Protein Albumin Crossmatch See Detail Crossmatch IS Only See Detail 01/06/17 05:50 WBC Hgb Hct MPV Anion Gap 7 L Random Glucose 150 H D Calcium 7.7 L Total Protein 3.8 L D Albumin 1.5 L D Crossmatch Crossmatch IS Only A/P 51 y/o patient with recent onset ascites, peritoneal implants, elevated CA 125. negative colonoscopy POD no.1 Total abdominal hysterectomy, bilateral salpingoophorectomy, radical tumor debulking, omentectomy, bilateral ureterolysis Operative findings show-- Right ovary with multiple friable tumor nodules and 4 cm cystic mass. Left ovary and tube with tumor nodules. Uterus 14 week size and densely adherent to anterior abdominal wall. 8 cm solid tumor mass in pelvis, friable, adherent to culdesac and sigmoid colon. 3 cm tumor nodules on omentum. Diaphragms smooth, posterior liver edge with tumor nodules which were removed approximately 2 cm. Small bowel no evidence of tumor. 3 cm plaque on sigmoid colon. 4 cm tumor mass on left colon/mesentery which was removed. 3 cm tumor nodules on omentum near splenic flexure, which were removed. 7 liters of clear serous ascites. Discussed with patient and her sister details of chemotherapy--carboplatin/ taxol.Discussed port-a-cath placement. Discussed schedule, side effects, complications in great detail. Answered all their questions To f/u closely as out patient , once she heals post op.
[2017-01-06 19:58] LABS: MCH 27.2 pg (25.7-33.7); MCHC 33.9 g/dl (32.0-36.0); MEAN CELL VOLUME 80.4 fl (80-96); PLATELET COUNT 288 K/MM3 (134-434); RDW 14.4 % (11.6-15.6)
[2017-01-07] MEDS: ACETAMINOPHEN 325 MG TABLET (FP) PO SCH (00:05)
[2017-01-07] MEDS: LACTATED RINGERS SOLUTION 1,000 ML IV SCH (02:20)
[2017-01-07] MEDS: KETOROLAC TROMETHAMINE 30 MG/1 ML VIAL IVPUSH SCH ×2 (02:26→09:25)
[2017-01-07 07:21] LABS: BASOPHIL 0.2 % (0-2.0); EOSINOPHIL 1.5 % (0-4.5); MCH 27.6 pg (25.7-33.7); MCHC 33.8 g/dl (32.0-36.0); MEAN CELL VOLUME 81.7 fl (80-96); MEAN PLT VOLUME 7.1 fl (7.5-11.1); NEUTROPHILS 85.3 % (42.8-82.8); PLATELET COUNT 251 K/MM3 (134-434); RDW 14.4 % (11.6-15.6); WHITE BLOOD COUNT 8.9 K/mm3 (4.0-10.0)
[2017-01-07 08:07] LABS: ALBUMIN 1.2 g/dl (3.4-5.0); ALK PHOS 71 U/L (45-117); ANION GAP 6 (8-16); BILIRUBIN,TOTAL 0.4 mg/dL (0.2-1.0); CALCIUM 7.5 mg/dL (8.5-10.1); CO2 28 mmol/L (21-32); CREATININE 0.5 mg/dL (0.55-1.02); GLUCOSE,RANDOM 91 mg/dL (74-106); SGOT/AST 41 U/L (15-37); SGPT/ALT 14 U/L (12-78); TOT PROT 3.6 g/dl (6.4-8.2)
--- NOTE | 2017-01-07 09:17 | PN ---
Progress Note (short form) - Note Progress Note: gets out of bed several times eating a little, drinking a lot CBC, BMP 01/07/17 06:00 01/07/17 06:00 Vital Signs Period Temp Pulse Resp BP Sys/Barbour Pulse Ox Last 24 Hr 98.1 F-98.8 F 102-108 16-20 97-107/52-61 100-100 S1S2 RRR Lungs cta Abd dressing dry intact, +BS no edema aaox3 IMP POD#2 RUY-BSO, debulking of intraabdominal tumors, omentectomy, bilateral ureterolysis anemia c/w surgical blood loss and dilutional on iv fluids dc iv fluids post of care as per sg.team path f/up will need chemo therapy consults appreciated
[2017-01-07] MEDS: ENOXAPARIN NA (PORCINE) 40 MG/0.4 ML DISP.SYRIN SQ SCH (09:27)
[2017-01-07] MEDS ORDERED: oxyCODONE HCL 5 MG TABLET PO PRN ×2 (10:23)
[2017-01-07] MEDS: HYDROmorphone HCL CARPU-JECT 1 MG/1 ML DISP.SYRIN IVPB PRN ×2 (12:47→17:12)
--- NOTE | 2017-01-07 13:53 | PN ---
Progress Note (short form) - Note Progress Note: S: Patient tolerating PO with no nausea and vomiting, says pain is controlled with ETCHER ELECTROLYTIC O: S/P ex lap hysterectomy omenttectomy and staging post op day 2 AVSS A/P: Will d/c ETCHER ELECTROLYTIC and convert to PO pain medication with IV dilauded for break through pain
[2017-01-07] MEDS: KETOROLAC TROMETHAMINE 30 MG/1 ML VIAL IVPUSH PRN (20:59)
[2017-01-08] MEDS: KETOROLAC TROMETHAMINE 30 MG/1 ML VIAL IVPUSH PRN ×2 (06:17→13:00)
[2017-01-08 07:26] LABS: MCH 27.4 pg (25.7-33.7); MCHC 33.6 g/dl (32.0-36.0); MEAN CELL VOLUME 81.6 fl (80-96); MEAN PLT VOLUME 7.2 fl (7.5-11.1); PLATELET COUNT 288 K/MM3 (134-434); RDW 14.7 % (11.6-15.6); WHITE BLOOD COUNT 6.5 K/mm3 (4.0-10.0)
[2017-01-08 08:05] LABS: ALBUMIN 1.2 g/dl (3.4-5.0); ALK PHOS 91 U/L (45-117); ANION GAP 6 (8-16); BILIRUBIN,TOTAL 0.4 mg/dL (0.2-1.0); CALCIUM 7.6 mg/dL (8.5-10.1); CO2 29 mmol/L (21-32); CREATININE 0.5 mg/dL (0.55-1.02); GLUCOSE,RANDOM 94 mg/dL (74-106); SGOT/AST 49 U/L (15-37); SGPT/ALT 19 U/L (12-78); TOT PROT 4.2 g/dl (6.4-8.2)
--- NOTE | 2017-01-08 08:45 | PN ---
Progress Note (short form) - Note Progress Note: gets out of bed several times eating a little, drinking a lot no BM since admission 01/08/17 05:35 01/08/17 05:35 Vital Signs Period Temp Pulse Resp BP Sys/Barbour Pulse Ox Last 24 Hr 98.0 F-98.5 F 99-112 16-20 92-106/51-61 98-98 S1S2 RRR Lungs cta Abd dressing dry intact, +BS no edema aaox3 IMP POD#3 RUY-BSO, debulking of intraabdominal tumors, omentectomy, bilateral ureterolysis anemia c/w surgical blood loss and dilutional on iv fluids post of care as per sg.team path f/up will need chemo therapy f/up path add ensure consults appreciated
[2017-01-08] MEDS: DOCUSATE SODIUM 100 MG CAPSULE (FP) PO PRN ×2 (09:39→21:23)
[2017-01-08] MEDS: ENOXAPARIN NA (PORCINE) 40 MG/0.4 ML DISP.SYRIN SQ SCH (09:40)
[2017-01-08] MEDS ORDERED: ACETAMINOPHEN 325 MG TABLET (FP) PO PRN (15:22)
--- NOTE | 2017-01-08 16:50 | PN ---
Progress Note (short form) - Note Progress Note: Patient seen and examined. Pt says she passing gas, but no BM. Pain is controlled. Kids at bedside. O/E: Cor: RSR, No murmurs, No gallops Lungs: Clear to P&A Abd: incision in dressing Ext:No significant edema Skin: No rashes, Integument intact Temp Pulse Resp BP Pulse Ox 98.1 F 102 H 20 114/49 98 01/08/17 14:00 01/08/17 14:00 01/08/17 14:00 01/08/17 14:00 01/08/17 09:00 CBC, BMP 01/08/17 05:35 01/08/17 05:35 Current Medications Generic Name Dose Route Start Last Admin Trade Name Freq PRN Reason Stop Dose Admin Acetaminophen 650 mg 01/07/17 09:23 Tylenol - PO Q6HPO PRN PAIN OR FEVER Acetaminophen 650 mg 01/08/17 15:22 Tylenol - PO 01/11/17 15:21 Q4H PRN PAIN 6-10 Dexamethasone Sodium Phosphate 4 mg 01/05/17 15:40 Decadron Injection - IVPUSH ONCE PRN NAUSEA AND/OR VOMITING Diphenhydramine HCl 12.5 mg 01/05/17 15:40 Benadryl Injection - IVPUSH ONCE PRN FOR ITCHING Docusate Sodium 100 mg 01/08/17 08:44 01/08/17 09:39 Colace - PO 100 mg BID PRN Administration CONSTIPATION Enoxaparin Sodium 40 mg 01/06/17 10:00 01/08/17 09:40 Lovenox - SQ 40 mg DAILY FABRICE Administration Hydromorphone HCl 1 mg 01/07/17 10:23 01/07/17 17:12 Dilaudid Injection - IVPB 1 mg Q4H PRN Administration PAIN Ketorolac Tromethamine 30 mg 01/07/17 09:22 01/08/17 13:00 Toradol Injection - IVPUSH 01/10/17 20:59 30 mg Q6H-IV PRN Administration PAIN Oxycodone HCl 10 mg 01/08/17 15:22 Roxicodone - PO Q4H PRN PAIN 6-10 Promethazine HCl 12.5 mg 01/05/17 15:40 Phenergan Injection - IVPB Q6H PRN NAUSEA AND/OR VOMITING 51 y/o patient with recent onset ascites, peritoneal implants, elevated CA 125. POD no.3 Total abdominal hysterectomy, bilateral salpingoophorectomy, radical tumor debulking, omentectomy, bilateral ureterolysis Operative findings reviewed Pain control Bowel regimen OOB to chair and walk as tolerated advised DVT ppx monitor Crit post op surgical f/u will follow To f/u closely as out patient , once she heals post op.
--- NOTE | 2017-01-08 17:46 | PATH ---
Cytology Non-Gynecological Report Patient Name: ROHAN HAND [facility]. Rec. #: [id number] /Age/Gender: 1965 (Age: 51) / F Account: [id number] Location: 4 SO PEDS/ADOL Taken: 01/05/2017 Received: 01/05/2017 Reported: 01/08/2017 Physicians: Zandra Durbin MD Specimen(s) Received PERITONEAL FLUID Clinical History None Provided Final Diagnosis PERITONEAL FLUID, ASPIRATION: SATISFACTORY FOR EVALUATION. ATYPICAL. RARE ATYPICAL EPITHELIAL CELLS PRESENT. SEE COMMENT. Comment: Cell block material show a single papillary cluster of atypical cells with moderate nuclear enlargement in a background of rare degenerated cells. Unfortunately, the atypical cluster disappeared on deeper levels. Performed immunohistochemical stains at [facility] in [place], [place] ([id number]) show very rare cells positive for YAMILE, while an isolated cell is highlighted by Hopwood-8. AMY-EP4, MOC-31, calretinin, and D240 immunohistochemical stains are non-contributory. Case shown interdepartmentally. Concurrent pathology material [id number] reviewed. Electronically Signed Madhavi Nettles M.D. Gross Description Approximately 100 cc of bloody fluid received fixed in 50% alcohol. Two cytofunnels and one cellblock prepared.
[2017-01-08] MEDS: oxyCODONE HCL 5 MG TABLET PO PRN (18:17)
--- NOTE | 2017-01-08 18:17 | PN ---
Progress Note (short form) - Note Progress Note: POD# 3 RUY/BSO tumor debulking patient seen and examined at bedside c/o abdominal pain with movement/ambulation-pain controlled with meds. Patient states she is tolerating a diet, voiding and passing gas but she has not had a BM yet. She denies, c/p, SOB, N/V/D, subjective fevers or chills. A&Ox3, NAD Unlabored resp on RA abdomen soft, mildly distended and mildly ttp throughout. Incision c/d/i with megan insitu and no evidence of tracking erythema or d/c. re-dressed with clean dry dressing. Lungs- CLA b/l and S1+S2 B/l Le compartments soft, supple and non-tender to palpation with b/l scds in place NVID with +2 pedal pulses. Vital Signs Period Temp Pulse Resp BP Sys/Barbour Pulse Ox Last 24 Hr 98.1 F-99 F 99-110 16-20 105-114/49-60 98-98 CBC, BMP 10/13/17 05:35 10/13/17 05:35 Imp: POD #3 RUY/BSO, tumor debulking with asymptomatic post op anemia in patient who is tachycardic at baseline. Evaluation and plan discussed with Dr Durbin and Dr. Mata (Covering for PCP An)-PCP will evaluate the patient prior to discharge. Plan: 1) Start Iron supplement 2) trend H&H, follow up AM labs 3) keep dressing clean and dry, reinforce/ change PRN 4) DVT prophylaxis with scds and lovenox 40 SQ daily 5) Continue pain management 6) OOB with assist 7) Daily IS 8) Follow up with Dr Durbin as out patient
[2017-01-08] MEDS: ACETAMINOPHEN 325 MG TABLET (FP) PO PRN (18:20)
[2017-01-08] MEDS: POLYETHYLENE GLYCOL 3350 119 GM BTL PO SCH (21:23)
[2017-01-09] MEDS: oxyCODONE HCL 5 MG TABLET PO PRN ×3 (01:06→14:54)
[2017-01-09 05:48] VITALS: PULSE 107; TEMP 98.4
[2017-01-09] MEDS ORDERED: diphenhydrAMINE HCL 25 MG CAPSULE (FP) PO PRN (07:59)
--- NOTE | 2017-01-09 08:05 | DS ---
"Physical Examination Vital Signs: Vital Signs Temperature 98.4 F 01/09/17 05:47 Pulse Rate 107 H 01/09/17 05:47 Respiratory Rate 16 01/09/17 05:47 Blood Pressure 107/57 01/09/17 05:47 O2 Sat by Pulse Oximetry (%) 98 01/08/17 21:00 Constitutional: Yes: No Distress Eyes: Yes: EOM Intact HENT: Yes: Normocephalic Neck: Yes: Trachea Midline Cardiovascular: Yes: Regular Rate and Rhythm Respiratory: Yes: CTA Bilaterally Gastrointestinal: Yes: Normal Bowel Sounds, Soft Edema: No Peripheral Pulses WNL: Yes Discharge Summary Reason For Visit: ASCITES/FIBROID UTERUS/ELEVATED CA125 Hospital Course: Admitted for RUY-BSO and debulking, tolerated the procedure well, postop anemia is c/w blood loss and dilution, has been on the improving side medically stable to go home, monitor shows low grade sinus tach on-off likely due to stress, anemia and general condition will follow closely as outpt pathology is still pending. Condition: Stable - Instructions Diet, Activity, Other Instructions: Kwame HAND, Post Operative Instructions Physical activity Resume your normal everyday activity as tolerated no heavy lifting or exercise until seen by your surgeon. Wound care Keep your incision clean, dry and covered Diet There are no dietary restrictions. Eat healthy, high-fiber foods. Drink 6 to 8 glasses of liquid each day. This will assist in keeping your bowels are regular. Pain management You may take Tylenol or acetaminophen or Ibuprofen (for example, Motrin, Advil etc.) Any pain prescription medication ordered should be taken as prescribed for moderate to severe pain. Call Dr. Durbin for any of the following: Severe pain not relieved by medication Fever of 101 or higher Excessive bleeding or drainage on dressing You have a follow-up appointment scheduled for JAN 19, call your surgeon's office to confirm your appointment date. This report was requested by: Yasmin You | Reference #: [id number] Disposition: HOME - Home Medications Comprehensive Discharge Medication List: Ambulatory Orders Cetirizine HCl [Zyrtec -] 10 mg PO DAILY PRN 12/31/16 Acetaminophen [Tylenol .Regular Strength -] 650 mg PO Q6HPO #30 tablet 01/08/17 Docusate Sodium [Colace -] 100 mg PO BID #30 tab 01/08/17 Ferrous Sulfate [Feosol] 325 mg PO BID #60 tab 01/08/17 Naproxen Sodium [Aleve] 220 mg PO BID #20 tablet 01/08/17 Oxycodone HCl 5 mg PO Q4H PRN #20 tablet MDD 6 01/08/17"
[2017-01-09 08:06] LABS: MCH 27.3 pg (25.7-33.7); MCHC 33.5 g/dl (32.0-36.0); MEAN CELL VOLUME 81.6 fl (80-96); PLATELET COUNT 332 K/MM3 (134-434)
[2017-01-09 08:48] LABS: ALBUMIN 1.3 g/dl (3.4-5.0); ANION GAP 6 (8-16); CALCIUM 7.9 mg/dL (8.5-10.1); CO2 30 mmol/L (21-32); CREATININE 0.5 mg/dL (0.55-1.02); GLUCOSE,RANDOM 94 mg/dL (74-106); SGOT/AST 59 U/L (15-37); SGPT/ALT 32 U/L (12-78)
[2017-01-09 08:50] LABS: ALK PHOS 92 U/L (45-117); BILIRUBIN,TOTAL 0.4 mg/dL (0.2-1.0); TOT PROT 4.4 g/dl (6.4-8.2)
[2017-01-09 09:21] LABS: THYROID STIMULATING HORMONE 0.22 uIU/ml (0.358-3.74)
[2017-01-09] MEDS: ENOXAPARIN NA (PORCINE) 40 MG/0.4 ML DISP.SYRIN SQ SCH (09:51)
[2017-01-09] MEDS: POLYETHYLENE GLYCOL 3350 119 GM BTL PO SCH (09:52)
[2017-01-09] MEDS ORDERED: FERROUS SO4 325 MG TABLET (FP) PO SCH (10:00)
[2017-01-09] MEDS: DOCUSATE SODIUM 100 MG CAPSULE (FP) PO PRN (11:41)
[2017-01-09 14:13] VITALS: BP 106/52
[2017-01-09] MEDS: ACETAMINOPHEN 325 MG TABLET (FP) PO PRN (14:55)
[2017-01-10] MEDS ORDERED: RIVAROXABAN 10 MG TABLET PO SCH (10:00)
--- NOTE | 2017-01-11 16:31 | PATH ---
Surgical Pathology Report Patient Name: ROHAN HAND [facility]. Rec. #: [id number] /Age/Gender: 1965 (Age: 51) / F Account: [id number] Location: 4 SO PEDS/ADOL Taken: 01/05/2017 Received: 01/05/2017 Reported: 01/11/2017 Physicians: Zandra Durbin MD Specimen(s) Received A: PELVIC NODULE B: UTERUS, CERVIX, LEFT TUBE AND OVARY, C: RIGHT TUBE AND OVARY D: PELVIC MASS E: OMENTUM F: LIVER NODULE Clinical History Ascites, fibroid uterus, elevated CA125 Intraoperative Consult Diagnosis A. Pelvic nodule, frozen section and touch prep: High grade malignant neoplasm. By Dr. De La O, 01/05/2017 Final Diagnosis A. 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 LEFT OVARY WITH INVOLVEMENT BY SEROUS HIGH GRADE CARCINOMA, APPROXIMATELY 0.1 CM IN GREATEST DIMENSION (MICROSCOPIC INVOLVEMENT). LEFT FALLOPIAN TUBE WITH MILD CYTOLOGIC ATYPIA, BUT NO INVOLVEMENT BY SEROUS HIGH GRADE CARCINOMA OR SEROUS TUBAL INTRAEPITHELIAL CARCINOMA (STIC) IDENTIFIED. RIGHT FALLOPIAN TUBE STUMP INVOLVED BY SEROUS HIGH-GRADE CARCINOMA. C. RIGHT FALLOPIAN TUBE AND OVARY, SALPINGO-OOPHORECTOMY: RUPTURED RIGHT OVARY WITH EXTENSIVE REPLACEMENT BY SEROUS HIGH-GRADE CARCINOMA, AT LEAST 7.2 CM IN GREATEST DIMENSION. NO DEFINITE LYMPH-VASCULAR INVASION IDENTIFIED. RIGHT FALLOPIAN TUBE SHOWS SEROSAL AND FIMBRIA INVOLVEMENT BY SEROUS HIGH-GRADE CARCINOMA. D. PELVIC MASS, EXCISION: MULTIPLE FRAGMENTS OF SEROUS HIGH-GRADE CARCINOMA, WITH LARGEST FRAGMENT MEASURING 4.8 CM IN GREATEST DIMENSION. E. OMENTUM, EXCISION: MULTIPLE AREAS OF INVOLVEMENT BY SEROUS HIGH-GRADE CARCINOMA, WITH LARGEST NODULE MEASURING 4 CM IN GREATEST DIMENSION. F. LIVER NODULE, EXCISION: MULTIPLE FRAGMENTS OF SEROUS HIGH-GRADE CARCINOMA, 3.5 CM IN AGGREGATE. Comment: Immunohistochemical stains performed at [place], [place] ([id number]) and interpreted at [facility] show the following results: The neoplastic cells are positive with MARVA, CA125, PAX8, WT-1, p16, and p53 (strong overexpression). The neoplastic cells do not stain with calretinin. The histologic and immunophenotypic findings are consistent with serous high-grade carcinoma. The presence of right tubal involvement is consistent with tubal origin, even though there is extensive ovarian involvement. At the request of Dr. Oconnor the following immunostains were performed. ER (clone [id number] mouse monoclonal antibody by [employer]): ~90% nuclear staining with moderate to weak intensity (Positive). IL (clone16 mouse monoclonal antibody by [employer]) : ~2% nuclear staining with strong intensity (Positive). Her2 IHC (EP3 from [employer], formerly known as [id number], using Gonzalez Polymer Refine detection kit): 1+ Negative Immunohistochemical stains for MisMatch Repair Protein Analysis performed at [facility] in [place], [place] ([id number]) and interpreted at [facility] show the following: RESULTS: HMLH-1 INTACT NUCLEAR EXPRESSION HMSH-2 INTACT NUCLEAR EXPRESSION HMSH-6 INTACT NUCLEAR EXPRESSION PMS2 INTACT NUCLEAR EXPRESSION INTERPRETATION: No loss of nuclear expression of MMR proteins: low probability of microsatellite instability-high (MSI-H) Positive and negative controls (internal if applicable) show appropriate results. Formalin fixation and cold ischemic times are within current ASCO/CAP recommendations for ER, IL and Her2 testing. Comments Ovarian Carcinoma: Surgical Pathology Cancer Case Summary (Checklist) Based on AJCC/UICC TNM, 7th edition Lymph Node Sampling _X__ Not performed Specimen Integrity Right Ovary _X__ Fragmented Left Ovary _X__ Capsule intact Primary Tumor Site _ Right ovary Ovarian Surface Involvement _Present Tumor Size Right Ovary (if applicable) Greatest dimension: AT LEAST 7.2 cm Left Ovary (if applicable) Greatest dimension: 2.3 cm Histologic Type: HIGH GRADE SEROUS Histologic Grade World Health Organization (WHO) Grading System (applies to all carcinomas, including serous carcinomas) _X__ G3: Poorly differentiated Two-Tier Grading System (may be applied to serous carcinomas and immature teratomas only) _X__ High grade Implants (only applies to advanced stage serous/seromucinous borderline tumors) Noninvasive Implant(s) _X__ Not present Invasive Implant(s) _X__ Present (specify sites): , PELVIC NODULE, OMENTUM, LIVER, LEFT OVARY, LEFT FALLOPIAN TUBE FIMBRIA Extent of Involvement of Other Tissues/Organs _X__ Right ovary _X__ Involved _X__ Left ovary _X__ Involved _X__ Right fallopian tube _X__ Not involved _X__ Left fallopian tube _X__ Involved _X__ Omentum _X__ Involved _X__ Uterus _X__ Not involved _X__ Peritoneum _X__ Involved _X__ Other organs/tissues (specify): LIVER Lymph-Vascular Invasion _X__ Indeterminate Pathologic Staging (pTNM [FIGO]) Primary Tumor :pT3c Regional Lymph Nodes: pNX Distant Metastasis: pMX Additional Pathologic Findings _X__ None identified Electronically Signed Thor De La O M.D. Gross Description A. Received fresh for frozen section labeled "pelvic nodule" is a 1.3 x 1.0 x 0.8 cm portion of frederick tissue with a glistening frederick cut surface. Touch preps are prepared. A associate financial representative portion is frozen and frozen remainder is submitted in cassette A1. The remaining tissue is submitted in cassette A2 for permanent section. B. Received in formalin labeled "uterus, cervix, left tube and ovary," is a 381 g hysterectomy specimen comprised of a uterus, an attached cervix and an attached left fallopian tube and left ovary. The specimen measures 12.5 cm from superior to inferior, 9.3 cm from left to right and 8.2 cm from anterior to posterior. The serosa is frederick-rowan with focal adhesions and bulging subserosal nodules. The attached cervix measures 3.5 cm in length and averages 2.2 cm in diameter. The ectocervix is frederick, smooth and glistening. The endocervix is unremarkable. The endometrial cavity measures 6.5 cm in length and averages 4 cm from cornu to cornu. The endometrium is red and averages 0.1 cm in thickness. The myometrium displays abundant intramural nodules, measuring up to 4.5 cm in greatest dimension. The cut surface of the subserosal and intramural nodules is frederick, firm to rubbery and displays whorled architecture. No areas of hemorrhage or necrosis are identified. The remaining myometrium is frederick-pink and measures up to 4 cm in thickness. The left fimbriated fallopian tube measures 5 cm in length. The outer surface is fofana purple and smooth. Sectioning reveals unremarkable lumen. The left ovary measures 2.3 x 1.6 x 1.6 cm. The outer surface is frederick, convoluted and smooth. Sectioning reveals a 0.9 cm in greatest dimension hemorrhagic cyst. The remaining ovarian parenchyma is frederick and unremarkable. There is frederick, friable soft tissue attached at the site of the right fallopian tube stump. Hand Dry Cleaner sections are submitted in 23 cassettes as follows: 1-anterior cervix; 2-posterior cervix; 3-left parametrium; 4-right parametrium; 6-7-jtwrdlea endomyometrium; 1-1-zdnofscou endomyometrium; 2-99-nzydxjzyfk nodules; 36-89-tpasjmdoas nodules; 56-43-pmhlsdt adhesions; 39-41-ofynwclu submitted left fallopian tube (fimbria in cassette 16); 52-99-oltstspv submitted left ovary; 69-85-mnstbr attached at site of right fallopian tube stump. C. Received in formalin labeled "right tube and ovary," is a 4 cm in length convoluted, fimbriated fallopian tube with an attached 7.2 x 6.7 x 5.5 cm cystic-appearing, intact ovary. The outer surface of the ovary is frederick and smooth. No definite excrescences are identified on the outer surface. Sectioning reveals abundant papillary excrescences and friable material as well as focal solid components. No definite normal ovarian parenchyma is identified. Separately received within the same container is a 7.5 x 6.0 x 2.5 cm aggregate of frederick-brown, friable nodules. Hand Dry Cleaner sections are submitted in 14 cassettes as follows: 4-9-sjnziqio submitted fallopian tube (fimbria in cassette 1); 9-40-adulqricjjpfws ovary; 60-35-yduuycnibi received friable nodules. D. Received in formalin labeled "pelvic mass," is an 11.0 x 11.0 x 5.5 cm aggregate of frederick, friable soft tissue fragments. The largest nodule measures 4.8 cm in greatest dimension. Sectioning reveals abundant frederick-white, papillary and focally solid parenchyma. Hand Dry Cleaner sections are submitted in 4 cassettes. E. Received in formalin labeled "omentum," and a 19.5 x 12.0 x 3.5 cm aggregate of yellow, lobulated adipose tissue. Sectioning reveals abundant frederick, friable nodules throughout the omentum. The largest nodule measures 4 cm in greatest dimension. Hand Dry Cleaner sections are submitted in 2 cassettes. F. Received in formalin labeled "liver nodule," is a 3.5 x 3.0 x 1.4 cm aggregate of frederick, friable nodules. Hand Dry Cleaner sections are submitted in 2 cassettes. [facility]/01/05/2017 [facility]/01/05/2017
== END 2017-01-09 15:22 | disposition home or self-care (01) | DRG 737 ==
LOC: JSAMEDAYSX 10:27 → EDSTATUS 12:00 → J4S 01-06 00:25
PROVIDERS: ADMIT Obstetrics & Gynecology Gynecologic Oncology; ATTEND Obstetrics & Gynecology Gynecologic Oncology
PROC: 0UTC0ZZ Resection of Cervix, Open Approach (ICD-10-PCS; 2017-01-05)
PROC: 0UT70ZZ Resection of Bilateral Fallopian Tubes, Open Approach (ICD-10-PCS; 2017-01-05)
PROC: 0UT20ZZ Resection of Bilateral Ovaries, Open Approach (ICD-10-PCS; 2017-01-05)
PROC: 0DTU0ZZ Resection of Omentum, Open Approach (ICD-10-PCS; 2017-01-05)
PROC: 0TN70ZZ Release Left Ureter, Open Approach (ICD-10-PCS; 2017-01-05)
PROC: 0TN60ZZ Release Right Ureter, Open Approach (ICD-10-PCS; 2017-01-05)
PROC: 0FB00ZX Excision of Liver, Open Approach, Diagnostic (ICD-10-PCS; 2017-01-05)
PROC: 30233N1 Transfusion of Nonautologous Red Blood Cells into Peripheral Vein, Percutaneous Approach (ICD-10-PCS; 2017-01-05)
PROC: 0UT90ZZ Resection of Uterus, Open Approach (ICD-10-PCS; principal; 2017-01-05 12:00)
DX: C56.2 Malignant neoplasm of left ovary (principal); R18.8 Other ascites; D62 Acute posthemorrhagic anemia; C56.1 Malignant neoplasm of right ovary; R00.0 Tachycardia, unspecified; D25.9 Leiomyoma of uterus, unspecified
CPT/HCPCS: 36415; 36430; 80053; 84443; 84703; 85025; 85027; 86850; 86900; 86901; 86922; 88108; 88305-TC; 88307-TC; 88331-TC; 94010; 94760; P9038; P9047; P9058

== ENCOUNTER 2017-01-26 06:57 | Day surgery (SDC) | payer OTHER ==
[2017-01-26] MEDS ORDERED: PALONOSETRON HCL 0.25 MG in SODIUM CHLORIDE 50 ML IVPB ONE (10:00)
[2017-01-26] MEDS ORDERED: SODIUM CHLORIDE 250 ML IV ONE ×2 (10:00→14:00)
[2017-01-26] MEDS ORDERED: RANITIDINE INJECTION 50 MG, DIPHENHYDRAMINE 50 MG in SODIUM CHLORIDE 100 ML IVPB ONE (10:00)
[2017-01-26] MEDS ORDERED: DEXAMETHASONE INJECTION 10 MG in SODIUM CHLORIDE 50 ML IVPB ONE (10:00)
[2017-01-26] MEDS ORDERED: PACLITAXEL IVPB ONE (10:30)
[2017-01-26] MEDS ORDERED: SODIUM CHLORIDE IVPB ONE ×2 (10:30→13:30)
[2017-01-26 12:15] LABS: ALBUMIN 3.1 g/dl (3.4-5.0); ALK PHOS 88 U/L (45-117); ANION GAP 8 (8-16); BILIRUBIN,DIRECT 0.1 mg/dL (0.0-0.2); BILIRUBIN,TOTAL 0.3 mg/dL (0.2-1.0); CALCIUM 9.3 mg/dL (8.5-10.1); CO2 25 mmol/L (21-32); CREATININE 0.7 mg/dL (0.55-1.02); GLUCOSE,RANDOM 245 mg/dL (74-106); SGOT/AST 10 U/L (15-37); SGPT/ALT 21 U/L (12-78); TOT PROT 7.8 g/dl (6.4-8.2)
[2017-01-26 13:01] LABS: BASOPHIL 0.2 % (0-2.0); MCH 27.5 pg (25.7-33.7); MCHC 32.8 g/dl (32.0-36.0); MEAN CELL VOLUME 83.9 fl (80-96); MEAN PLT VOLUME 8.5 fl (7.5-11.1); NEUTROPHILS 86.3 % (42.8-82.8); PLATELET COUNT 292 K/MM3 (134-434); RDW 17.9 % (11.6-15.6); WHITE BLOOD COUNT 4.1 K/mm3 (4.0-10.0)
[2017-01-26] MEDS ORDERED: CARBOPLATIN IVPB ONE (13:30)
[2017-01-26] MEDS ORDERED: DEXAMETHASONE SOD PHOSPHATE 10 MG/1 ML VIAL IVPUSH ONE (14:00)
[2017-01-26] MEDS ORDERED: SODIUM CHLORIDE 1,000 ML IV SCH (18:00)
[2017-01-26 19:54] VITALS: TEMP 98.4
[2017-01-26 20:13] VITALS: BP 122/77; PULSE 70
== END 2017-01-26 21:04 | disposition home or self-care (01) ==
LOC: JONCCHEMO 06:57 → J7W 13:07 → JONCCHEMO 21:04
PROVIDERS: ATTEND Internal Medicine Hematology & Oncology
DX: Z51.11 Encounter for antineoplastic chemotherapy (principal); C56.9 Malignant neoplasm of unspecified ovary
CPT/HCPCS: 36415; 80053; 80076; 83735; 85025; 96361; 96367; 96375; 96413; 96415; 96417; J2469

== ENCOUNTER 2017-01-27 10:17 | Day surgery (SDC) | payer OTHER ==
[2017-01-27] MEDS ORDERED: PEGFILGRASTIM 6 MG/0.6 ML DISP.SYRIN SQ ONE (14:00)
[2017-01-27 16:29] VITALS: BP 116/52; PULSE 96; TEMP 98.6
== END 2017-01-27 16:35 | disposition home or self-care (01) ==
LOC: JONCCHEMO 10:17 → J7W 16:17 → JONCCHEMO 16:35
PROVIDERS: ATTEND Internal Medicine Hematology & Oncology
PROC: 3E013GC Introduction of Other Therapeutic Substance into Subcutaneous Tissue, Percutaneous Approach (ICD-10-PCS; principal; 2017-01-27)
DX: C56.9 Malignant neoplasm of unspecified ovary (principal)
CPT/HCPCS: 96372; J2505

== ENCOUNTER 2017-02-08 07:24 | Day surgery (SDC) | payer OTHER ==
[2017-02-08] MEDS ORDERED: IRON SUCROSE INJECTION 100 MG in SODIUM CHLORIDE 100 ML IVPB ONE (15:00)
[2017-02-08 15:23] VITALS: TEMP 97.8
[2017-02-08] MEDS ORDERED: PORTA CATH FLUSH 10 ML IVPUSH ONE ×2 (15:27→15:29)
[2017-02-08 16:16] LABS: MCH 27.6 pg (25.7-33.7); MEAN CELL VOLUME 83.9 fl (80-96); MEAN PLT VOLUME 8.6 fl (7.5-11.1); PLATELET COUNT 189 K/MM3 (134-434); RDW 18.8 % (11.6-15.6); WHITE BLOOD COUNT 4.6 K/mm3 (4.0-10.0)
[2017-02-08 16:40] VITALS: BP 116/62; PULSE 86
[2017-02-08 17:06] LABS: ALBUMIN 3.1 g/dl (3.4-5.0); ALK PHOS 88 U/L (45-117); ANION GAP 7 (8-16); BILIRUBIN,TOTAL 0.1 mg/dL (0.2-1.0); CALCIUM 8.7 mg/dL (8.5-10.1); CO2 26 mmol/L (21-32); CREATININE 0.7 mg/dL (0.55-1.02); GLUCOSE,RANDOM 94 mg/dL (74-106); SGOT/AST 11 U/L (15-37); SGPT/ALT 19 U/L (12-78); TOT PROT 6.8 g/dl (6.4-8.2)
== END 2017-02-08 16:40 | disposition home or self-care (01) ==
LOC: JONCNONCHE 07:24 → J7W 14:53 → JONCNONCHE 16:40
PROVIDERS: ATTEND Internal Medicine Hematology & Oncology
PROC: 3E033GC Introduction of Other Therapeutic Substance into Peripheral Vein, Percutaneous Approach (ICD-10-PCS; principal; 2017-02-08)
DX: D50.9 Iron deficiency anemia, unspecified (principal)
CPT/HCPCS: 36415; 80053; 85027; 96417; J1756

== ENCOUNTER 2017-02-16 07:11 | Day surgery (SDC) | payer OTHER ==
[2017-02-16 08:53] LABS: BASOPHIL 0.2 % (0-2.0); MCH 27.2 pg (25.7-33.7); MCHC 32.3 g/dl (32.0-36.0); MEAN CELL VOLUME 84.2 fl (80-96); MEAN PLT VOLUME 8.1 fl (7.5-11.1); NEUTROPHILS 89.4 % (42.8-82.8); PLATELET COUNT 184 K/MM3 (134-434); RDW 19.1 % (11.6-15.6); WHITE BLOOD COUNT 5.9 K/mm3 (4.0-10.0)
[2017-02-16 09:23] LABS: ALBUMIN 3.7 g/dl (3.4-5.0); ALK PHOS 86 U/L (45-117); ANION GAP 8 (8-16); BILIRUBIN,DIRECT < 0.2 mg/dL (0.0-0.2); BILIRUBIN,TOTAL 0.3 mg/dL (0.2-1.0); CALCIUM 9.9 mg/dL (8.5-10.1); CO2 29 mmol/L (21-32); CREATININE 0.6 mg/dL (0.55-1.02); GLUCOSE,RANDOM 137 mg/dL (74-106); MAGNESIUM 2.2 mg/dL (1.8-2.4); SGOT/AST 12 U/L (15-37); SGPT/ALT 22 U/L (12-78); TOT PROT 7.6 g/dl (6.4-8.2)
[2017-02-16 09:41] VITALS: TEMP 98.2
[2017-02-16] MEDS ORDERED: PALONOSETRON HCL 0.25 MG in SODIUM CHLORIDE 50 ML IVPB ONE (10:00)
[2017-02-16] MEDS ORDERED: RANITIDINE INJECTION 50 MG, DIPHENHYDRAMINE 50 MG in SODIUM CHLORIDE 100 ML IVPB ONE (10:00)
[2017-02-16] MEDS ORDERED: SODIUM CHLORIDE 250 ML IV ONE ×2 (10:00→14:00)
[2017-02-16] MEDS ORDERED: DEXAMETHASONE INJECTION 10 MG in SODIUM CHLORIDE 50 ML IVPB ONE (10:00)
[2017-02-16] MEDS ORDERED: SODIUM CHLORIDE 500 ML IV ONE (10:30)
[2017-02-16] MEDS ORDERED: DEXAMETHASONE INJECTION 20 MG in SODIUM CHLORIDE 50 ML IVPB ONE (10:30)
[2017-02-16] MEDS ORDERED: PACLITAXEL IVPB ONE (11:00)
[2017-02-16] MEDS ORDERED: SODIUM CHLORIDE IVPB ONE ×2 (11:00→12:00)
[2017-02-16] MEDS ORDERED: PORTA CATH FLUSH 10 ML IVPUSH ONE (11:49)
[2017-02-16] MEDS ORDERED: CARBOPLATIN IVPB ONE (12:00)
[2017-02-16 17:11] VITALS: BP 109/60; PULSE 93
== END 2017-02-16 15:30 | disposition home or self-care (01) ==
LOC: JONCCHEMO 07:11 → J7W 09:25 → JONCCHEMO 15:30
PROVIDERS: ATTEND Internal Medicine Hematology & Oncology
DX: Z51.11 Encounter for antineoplastic chemotherapy (principal); C56.9 Malignant neoplasm of unspecified ovary
CPT/HCPCS: 36415; 80053; 80076; 83520; 83735; 84439; 85025; 96361; 96367; 96375; 96413; 96417; J2469

== ENCOUNTER 2017-02-17 07:15 | Day surgery (SDC) | payer OTHER ==
[2017-02-17] MEDS ORDERED: PEGFILGRASTIM 6 MG/0.6 ML DISP.SYRIN SQ ONE (10:00)
[2017-02-17] MEDS ORDERED: TBO-FILGRASTIM 480 MCG/0.8 ML DISP.SYRIN SQ ONE (12:30)
[2017-02-17 16:48] VITALS: BP 93/71; PULSE 105; TEMP 98.3
== END 2017-02-17 12:45 | disposition home or self-care (01) ==
LOC: JONCCHEMO 07:15 → J7W 12:59
PROVIDERS: ATTEND Internal Medicine Hematology & Oncology
PROC: 3E013GC Introduction of Other Therapeutic Substance into Subcutaneous Tissue, Percutaneous Approach (ICD-10-PCS; principal; 2017-02-17)
DX: C56.9 Malignant neoplasm of unspecified ovary (principal); Z76.89 Persons encountering health services in other specified circumstances
CPT/HCPCS: 96372; J1447

== ENCOUNTER 2017-02-23 07:52 | Day surgery (SDC) | payer OTHER ==
[2017-02-23] MEDS ORDERED: DEXAMETHASONE INJECTION 20 MG, RANITIDINE INJECTION 50 MG, DIPHENHYDRAMINE 50 MG in SOD... IVPB ONE (08:00)
[2017-02-23] MEDS ORDERED: PALONOSETRON HCL 0.25 MG in SODIUM CHLORIDE 50 ML IVPB ONE (08:00)
[2017-02-23] MEDS ORDERED: PACLITAXEL 138 MG in SODIUM CHLORIDE 250 ML IVPB ONE (08:30)
[2017-02-23 08:56] LABS: BASOPHIL 0.5 % (0-2.0); EOSINOPHIL 0.1 % (0-4.5); MCH 27.8 pg (25.7-33.7); MCHC 32.9 g/dl (32.0-36.0); MEAN CELL VOLUME 84.5 fl (80-96); MEAN PLT VOLUME 8.4 fl (7.5-11.1); NEUTROPHILS 41.8 % (42.8-82.8); PLATELET COUNT 193 K/MM3 (134-434); RDW 19.2 % (11.6-15.6); WHITE BLOOD COUNT 2.5 K/mm3 (4.0-10.0)
[2017-02-23] MEDS ORDERED: SODIUM CHLORIDE 250 ML IV ONE (09:00)
[2017-02-23 09:24] LABS: ALBUMIN 3.9 g/dl (3.4-5.0); ALK PHOS 101 U/L (45-117); ANION GAP 10 (8-16); BILIRUBIN,DIRECT < 0.2 mg/dL (0.0-0.2); BILIRUBIN,TOTAL 0.5 mg/dL (0.2-1.0); CALCIUM 9.7 mg/dL (8.5-10.1); CO2 28 mmol/L (21-32); CREATININE 0.7 mg/dL (0.55-1.02); GLUCOSE,RANDOM 129 mg/dL (74-106); SGOT/AST 15 U/L (15-37); SGPT/ALT 25 U/L (12-78); TOT PROT 7.8 g/dl (6.4-8.2)
[2017-02-23 10:29] VITALS: TEMP 98.5
[2017-02-23] MEDS ORDERED: PORTA CATH FLUSH 10 ML IVPUSH ONE (10:29)
[2017-02-23] MEDS ORDERED: SODIUM CHLORIDE 500 ML IV ONE (11:30)
[2017-02-23 15:39] VITALS: BP 116/80; PULSE 70
== END 2017-02-23 14:10 | disposition home or self-care (01) ==
LOC: JONCCHEMO 07:52 → J7W 10:01 → JONCCHEMO 14:10
PROVIDERS: ATTEND Internal Medicine Hematology & Oncology
DX: Z51.11 Encounter for antineoplastic chemotherapy (principal); C56.9 Malignant neoplasm of unspecified ovary
CPT/HCPCS: 36415; 80053; 80076; 83735; 85025; 96361; 96375; 96413; J2469

== ENCOUNTER 2017-03-02 07:27 | Day surgery (SDC) | payer OTHER ==
[2017-03-02] MEDS ORDERED: DEXAMETHASONE INJECTION 20 MG, RANITIDINE INJECTION 50 MG, DIPHENHYDRAMINE 50 MG in SOD... IVPB ONE (08:00)
[2017-03-02] MEDS ORDERED: PALONOSETRON HCL 0.25 MG in SODIUM CHLORIDE 50 ML IVPB ONE (08:00)
[2017-03-02] MEDS ORDERED: PACLITAXEL 138 MG in SODIUM CHLORIDE 250 ML IVPB ONE (08:30)
[2017-03-02 08:44] LABS: BASOPHIL 0.5 % (0-2.0); EOSINOPHIL 0.2 % (0-4.5); MCH 28.2 pg (25.7-33.7); MCHC 33.2 g/dl (32.0-36.0); MEAN CELL VOLUME 84.7 fl (80-96); MEAN PLT VOLUME 7.6 fl (7.5-11.1); NEUTROPHILS 37.6 % (42.8-82.8); PLATELET COUNT 150 K/MM3 (134-434); RDW 19.4 % (11.6-15.6); WHITE BLOOD COUNT 2.2 K/mm3 (4.0-10.0)
[2017-03-02 09:08] LABS: ALBUMIN 3.4 g/dl (3.4-5.0); ALK PHOS 95 U/L (45-117); ANION GAP 5 (8-16); BILIRUBIN,DIRECT < 0.2 mg/dL (0.0-0.2); BILIRUBIN,TOTAL 0.4 mg/dL (0.2-1.0); CO2 29 mmol/L (21-32); CREATININE 0.5 mg/dL (0.55-1.02); GLUCOSE,RANDOM 103 mg/dL (74-106); SGOT/AST 12 U/L (15-37); SGPT/ALT 21 U/L (12-78); TOT PROT 7.1 g/dl (6.4-8.2)
[2017-03-02] MEDS ORDERED: SODIUM CHLORIDE 500 ML IV ONE (10:00)
[2017-03-02 10:05] VITALS: TEMP 98.3
[2017-03-02] MEDS ORDERED: IRON SUCROSE INJECTION 200 MG in SODIUM CHLORIDE 100 ML IVPB ONE (11:00)
[2017-03-02 13:19] VITALS: BP 118/71; PULSE 97
== END 2017-03-02 13:00 | disposition home or self-care (01) ==
LOC: JONCCHEMO 07:27 → J7W 09:38 → JONCCHEMO 13:00
PROVIDERS: ATTEND Internal Medicine Hematology & Oncology
PROC: 3E033GC Introduction of Other Therapeutic Substance into Peripheral Vein, Percutaneous Approach (ICD-10-PCS; principal; 2017-03-02)
PROC: 3E043GC Introduction of Other Therapeutic Substance into Central Vein, Percutaneous Approach (ICD-10-PCS; 2017-03-02)
DX: C56.9 Malignant neoplasm of unspecified ovary (principal)
CPT/HCPCS: 36415; 80053; 80076; 83735; 85025; 96361; 96365; 96417; J1756

== ENCOUNTER 2017-03-09 07:22 | Day surgery (SDC) | payer OTHER ==
[2017-03-09] MEDS ORDERED: PALONOSETRON HCL 0.25 MG in SODIUM CHLORIDE 50 ML IVPB ONE (08:00)
[2017-03-09] MEDS ORDERED: DEXAMETHASONE INJECTION 20 MG, RANITIDINE INJECTION 50 MG, DIPHENHYDRAMINE 50 MG in SOD... IVPB ONE (08:00)
[2017-03-09] MEDS ORDERED: PACLITAXEL 138 MG in SODIUM CHLORIDE 250 ML IVPB ONE (08:30)
[2017-03-09 10:00] LABS: BASOPHIL 0.5 % (0-2.0); MCH 28.8 pg (25.7-33.7); MCHC 33.3 g/dl (32.0-36.0); MEAN CELL VOLUME 86.5 fl (80-96); MEAN PLT VOLUME 7.3 fl (7.5-11.1); NEUTROPHILS 57.6 % (42.8-82.8); PLATELET COUNT 96 K/MM3 (134-434); RDW 19.4 % (11.6-15.6); WHITE BLOOD COUNT 2.8 K/mm3 (4.0-10.0)
[2017-03-09 10:23] LABS: ALBUMIN 3.3 g/dl (3.4-5.0); ALK PHOS 95 U/L (45-117); ANION GAP 7 (8-16); BILIRUBIN,DIRECT < 0.2 mg/dL (0.0-0.2); BILIRUBIN,TOTAL 0.4 mg/dL (0.2-1.0); CALCIUM 9.1 mg/dL (8.5-10.1); CO2 27 mmol/L (21-32); CREATININE 0.5 mg/dL (0.55-1.02); GLUCOSE,RANDOM 99 mg/dL (74-106); MAGNESIUM 2.2 mg/dL (1.8-2.4); SGOT/AST 10 U/L (15-37); SGPT/ALT 22 U/L (12-78); TOT PROT 7.1 g/dl (6.4-8.2)
[2017-03-09 11:27] VITALS: TEMP 98.5
[2017-03-09] MEDS ORDERED: PORTA CATH FLUSH 10 ML IVPUSH ONE ×2 (11:27→13:34)
[2017-03-09] MEDS ORDERED: SODIUM CHLORIDE 250 ML IV ONE ×2 (11:45→13:45)
[2017-03-09] MEDS ORDERED: SODIUM CHLORIDE IVPB ONE (13:15)
[2017-03-09] MEDS ORDERED: CARBOPLATIN IVPB ONE (13:15)
[2017-03-09 16:35] VITALS: BP 122/70; PULSE 90
== END 2017-03-09 16:15 | disposition home or self-care (01) ==
LOC: JONCCHEMO 07:22 → J7W 13:08 → JONCCHEMO 16:15
PROVIDERS: ATTEND Internal Medicine Hematology & Oncology
PROC: 3E04305 Introduction of Other Antineoplastic into Central Vein, Percutaneous Approach (ICD-10-PCS; principal; 2017-03-09)
PROC: 3E04305 Introduction of Other Antineoplastic into Central Vein, Percutaneous Approach (ICD-10-PCS; 2017-03-09)
PROC: 3E04305 Introduction of Other Antineoplastic into Central Vein, Percutaneous Approach (ICD-10-PCS; 2017-03-09)
PROC: 3E0407Z Introduction of Electrolytic and Water Balance Substance into Central Vein, Open Approach (ICD-10-PCS; 2017-03-09)
DX: Z51.11 Encounter for antineoplastic chemotherapy (principal); C56.9 Malignant neoplasm of unspecified ovary
CPT/HCPCS: 36415; 80053; 80076; 83735; 85025; 86304; 96361; 96365; 96367; 96375; 96413; 96417; J2469

== ENCOUNTER 2017-03-11 07:29 | Day surgery (SDC) | payer OTHER ==
[2017-03-11] MEDS ORDERED: SODIUM CHLORIDE 500 ML IV ONE (08:00)
--- NOTE | 2017-03-11 16:01 | HP ---
Satellite [facility] - Chief Complaint Chief Complaint: Herer for f/u of ovarian cancer. 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: Other (obesity, s/p gastric sleeve with weight loss) Gastrointestinal: Yes: Constipation, Diverticulosis, Ascites, Other ...LMP: 12/09/16 Rheumatology: No: Vasculitis ENT: Yes: Sinusitis Endocrine: Yes: Other (Obesity) - Current Medications Current Medications: Home Medications Medication Instructions Recorded Cetirizine HCl [Zyrtec -] 10 mg PO DAILY PRN 12/31/16 Acetaminophen [Tylenol .Regular 650 mg PO Q6HPO #30 tablet 01/08/17 Strength -] Docusate Sodium [Colace -] 100 mg PO BID #30 tab 01/08/17 Ferrous Sulfate [Feosol] 325 mg PO BID #60 tab 01/08/17 Diphenhydramine HCl [Benadryl -] 25 mg PO Q6H PRN #28 capsule 01/09/17 Methimazole 10 mg PO 03/11/17 Satellite Physical Exam - Physical Examination General Appearance: Well Developed Lung: Clear to auscultation, Normal air movement Heart: Regular rate & rhythm, Normal S1, Normal S2 Abdomen: Soft, No tenderness Extremities: No edema Neurological: Intact Satellite Impression/Plan - Impression/Plan Impression: 51 y/o female with high grade srous ovarian cancer. C3 D3 carbo/ taxol. hydration. Discussed with nurse receptionist -- Dr. Ontiveros --- to start methimazole 5mg daily for hyperthyroidism. Discussed side effects of methimazole. To start neupogen prophylaxis for 3 days this week. To f/u on wednesday
[2017-03-11 16:52] VITALS: BP 122/70; PULSE 110; TEMP 98.1
== END 2017-03-11 11:30 | disposition home or self-care (01) ==
LOC: JONCNONCHE 07:29 → J7W 09:17 → JONCNONCHE 11:30
PROVIDERS: ATTEND Internal Medicine Hematology & Oncology
PROC: 3E0437Z Introduction of Electrolytic and Water Balance Substance into Central Vein, Percutaneous Approach (ICD-10-PCS; principal; 2017-03-11)
DX: E86.0 Dehydration (principal); C56.9 Malignant neoplasm of unspecified ovary
CPT/HCPCS: 96360; 96361

== ENCOUNTER 2017-03-16 07:30 | Day surgery (SDC) | payer OTHER ==
[2017-03-16] MEDS ORDERED: DEXAMETHASONE INJECTION 20 MG, RANITIDINE INJECTION 50 MG, DIPHENHYDRAMINE 50 MG in SOD... IVPB ONE (08:00)
[2017-03-16] MEDS ORDERED: PALONOSETRON HCL 0.25 MG in SODIUM CHLORIDE 50 ML IVPB ONE (08:00)
[2017-03-16] MEDS ORDERED: PACLITAXEL 138 MG in SODIUM CHLORIDE 250 ML IVPB ONE (08:30)
[2017-03-16 08:51] LABS: BASO % 0.3 % (0-2.0); EOS % 0.7 % (0-4.5); MCH 28.5 pg (25.7-33.7); MCHC 32.8 g/dl (32.0-36.0); MEAN CELL VOLUME 86.8 fl (80-96); NEUT % 45.6 % (42.8-82.8); PLATELET COUNT 99 K/MM3 (134-434); RDW 19.5 % (11.6-15.6); WHITE BLOOD COUNT 2.1 K/mm3 (4.0-10.0)
[2017-03-16 09:25] LABS: ALBUMIN 3.4 g/dl (3.4-5.0); ALK PHOS 99 U/L (45-117); ANION GAP 6 (8-16); BILIRUBIN,DIRECT < 0.2 mg/dL (0.0-0.2); BILIRUBIN,TOTAL 0.4 mg/dL (0.2-1.0); CO2 28 mmol/L (21-32); CREATININE 0.6 mg/dL (0.55-1.02); GLUCOSE,RANDOM 114 mg/dL (74-106); MAGNESIUM 2.1 mg/dL (1.8-2.4); SGOT/AST 11 U/L (15-37); SGPT/ALT 20 U/L (12-78); TOT PROT 7.1 g/dl (6.4-8.2)
[2017-03-16] MEDS ORDERED: SODIUM CHLORIDE 250 ML IV ONE ×2 (10:00→11:30)
[2017-03-16 10:14] VITALS: TEMP 97.6
[2017-03-16] MEDS ORDERED: PORTA CATH FLUSH 10 ML IVPUSH ONE (10:14)
[2017-03-16 14:59] VITALS: BP 117/71; PULSE 102
[2017-03-17 08:11] LABS: SERUM IRON 163 ug/dL (27-159); TOTAL IRON BINDING CAPACITY 278 ug/dL (250-450); UIBC 115 ug/dL (131-425)
== END 2017-03-16 14:35 | disposition home or self-care (01) ==
LOC: JONCCHEMO 07:30 → J7W 10:33 → JONCCHEMO 14:35
PROVIDERS: ATTEND Internal Medicine Hematology & Oncology
PROC: 3E04305 Introduction of Other Antineoplastic into Central Vein, Percutaneous Approach (ICD-10-PCS; principal; 2017-03-16)
PROC: 3E043GC Introduction of Other Therapeutic Substance into Central Vein, Percutaneous Approach (ICD-10-PCS; 2017-03-16)
PROC: 3E0437Z Introduction of Electrolytic and Water Balance Substance into Central Vein, Percutaneous Approach (ICD-10-PCS; 2017-03-16)
DX: Z51.11 Encounter for antineoplastic chemotherapy (principal); C56.9 Malignant neoplasm of unspecified ovary; D70.1 Agranulocytosis secondary to cancer chemotherapy
CPT/HCPCS: 36415; 80053; 80076; 83540; 83550; 83735; 85025; 96361; 96367; 96375; 96413; J2469

== ENCOUNTER 2017-03-24 07:33 | Day surgery (SDC) | payer OTHER ==
[2017-03-24] MEDS ORDERED: DEXAMETHASONE INJECTION 20 MG, RANITIDINE INJECTION 50 MG, DIPHENHYDRAMINE 50 MG in SOD... IVPB ONE (10:00)
[2017-03-24] MEDS ORDERED: PALONOSETRON HCL 0.25 MG in SODIUM CHLORIDE 50 ML IVPB ONE (10:00)
[2017-03-24] MEDS ORDERED: PACLITAXEL 138 MG in SODIUM CHLORIDE 250 ML IVPB ONE (10:30)
[2017-03-24 10:36] LABS: BASO % 0.1 % (0-2.0); EOS % 0.1 % (0-4.5); HEMATOCRIT 25.4 % (32.4-45.2); HEMOGLOBIN 8.3 GM/dL (10.7-15.3); LYMPH % 49.9 % (8-40); MCH 28.9 pg (25.7-33.7); MCHC 32.8 g/dl (32.0-36.0); MEAN CELL VOLUME 88.1 fl (80-96); MONO % 13.9 % (3.8-10.2); PLATELET COUNT 123 K/MM3 (134-434); RBC 2.88 M/mm3 (3.60-5.2); RDW 19.7 % (11.6-15.6); WHITE BLOOD COUNT 2.4 K/mm3 (4.0-10.0)
[2017-03-24] MEDS ORDERED: PACLITAXEL IVPB ONE ×2 (11:05→11:45)
[2017-03-24] MEDS ORDERED: SODIUM CHLORIDE IVPB ONE ×2 (11:05→11:45)
[2017-03-24 11:08] LABS: ALBUMIN 3.1 g/dl (3.4-5.0); ANION GAP 8 (8-16); BLOOD UREA NITROGEN 15 mg/dL (7-18); CALCIUM 8.5 mg/dL (8.5-10.1); CHLORIDE 108 mmol/L (98-107); CO2 25 mmol/L (21-32); GLUCOSE,RANDOM 107 mg/dL (74-106); POTASSIUM 3.6 mmol/L (3.5-5.1); SODIUM 141 mmol/L (136-145)
[2017-03-24 11:11] LABS: ALK PHOS 91 U/L (45-117); BILIRUBIN,DIRECT < 0.2 mg/dL (0.0-0.2); BILIRUBIN,TOTAL 0.2 mg/dL (0.2-1.0); CREATININE 0.5 mg/dL (0.55-1.02); SGOT/AST 14 U/L (15-37); SGPT/ALT 26 U/L (12-78); TOT PROT 6.5 g/dl (6.4-8.2)
[2017-03-24] MEDS ORDERED: SODIUM CHLORIDE 250 ML IV ONE (11:15)
[2017-03-24 12:40] VITALS: TEMP 98.4
[2017-03-24 17:51] VITALS: BP 109/68; PULSE 97
[2017-03-24] MEDS ORDERED: PORTA CATH FLUSH 10 ML IVPUSH ONE (17:51)
== END 2017-03-24 14:55 | disposition home or self-care (01) ==
LOC: JONCCHEMO 07:33
PROVIDERS: ATTEND Internal Medicine Hematology & Oncology
DX: Z51.11 Encounter for antineoplastic chemotherapy (principal); C56.9 Malignant neoplasm of unspecified ovary; D70.1 Agranulocytosis secondary to cancer chemotherapy
CPT/HCPCS: 36415; 80053; 80076; 83735; 85025; 96361; 96367; 96375; 96413; J2469

== ENCOUNTER 2017-04-02 10:43 | Day surgery (SDC) | payer OTHER ==
[2017-04-02 09:50] LABS: BASO % 0.2 % (0-2.0); HEMOGLOBIN 9.5 GM/dL (10.7-15.3); LYMPH % 35.9 % (8-40); MCH 29.5 pg (25.7-33.7); MEAN CELL VOLUME 89.4 fl (80-96); MEAN PLT VOLUME 7.8 fl (7.5-11.1); MONO % 15.9 % (3.8-10.2); PLATELET COUNT 169 K/MM3 (134-434); RBC 3.24 M/mm3 (3.60-5.2); RDW 21.6 % (11.6-15.6)
[2017-04-02 10:19] LABS: ALBUMIN 3.3 g/dl (3.4-5.0); ANION GAP 8 (8-16); BILIRUBIN,DIRECT < 0.2 mg/dL (0.0-0.2); BLOOD UREA NITROGEN 14 mg/dL (7-18); CALCIUM 8.7 mg/dL (8.5-10.1); CHLORIDE 105 mmol/L (98-107); CO2 26 mmol/L (21-32); GLUCOSE,RANDOM 109 mg/dL (74-106); MAGNESIUM 2.3 mg/dL (1.8-2.4); POTASSIUM 3.9 mmol/L (3.5-5.1); SGOT/AST 24 U/L (15-37); SGPT/ALT 44 U/L (12-78); SODIUM 139 mmol/L (136-145)
[2017-04-02 10:23] LABS: ALK PHOS 118 U/L (45-117); BILIRUBIN,TOTAL 0.2 mg/dL (0.2-1.0); CREATININE 0.6 mg/dL (0.55-1.02)
[2017-04-02] MEDS ORDERED: SODIUM CHLORIDE 250 ML IV ONE (11:15)
[2017-04-02] MEDS ORDERED: SODIUM CHLORIDE 750 ML IV SCH (11:45)
[2017-04-02] MEDS ORDERED: PORTA CATH FLUSH 10 ML IVPUSH ONE (14:32)
[2017-04-02 14:33] VITALS: BP 105/67; PULSE 97; TEMP 98.4
== END 2017-04-02 13:45 | disposition home or self-care (01) ==
LOC: JONCNONCHE 10:43 → J7W 10:47 → JONCNONCHE 13:45
PROVIDERS: ATTEND Internal Medicine Hematology & Oncology
PROC: 3E0437Z Introduction of Electrolytic and Water Balance Substance into Central Vein, Percutaneous Approach (ICD-10-PCS; principal; 2017-04-02)
DX: D56.9 Thalassemia, unspecified (principal)
CPT/HCPCS: 36415; 80048; 80076; 82607; 82728; 82747; 83540; 83550; 83735; 85014; 85025; 96360; 96361

== ENCOUNTER 2017-04-06 07:32 | Day surgery (SDC) | payer OTHER ==
[2017-04-06] MEDS ORDERED: DEXAMETHASONE INJECTION 20 MG, RANITIDINE INJECTION 50 MG, DIPHENHYDRAMINE 50 MG in SOD... IVPB ONE (10:00)
[2017-04-06] MEDS ORDERED: PALONOSETRON HCL 0.25 MG/5 ML VIAL IVPUSH ONE (10:00)
[2017-04-06 10:17] LABS: BASO % 0.4 % (0-2.0); EOS % 0.3 % (0-4.5); HEMATOCRIT 28.8 % (32.4-45.2); HEMOGLOBIN 9.3 GM/dL (10.7-15.3); LYMPH % 29.8 % (8-40); MCH 29.1 pg (25.7-33.7); MCHC 32.2 g/dl (32.0-36.0); MEAN CELL VOLUME 90.3 fl (80-96); MEAN PLT VOLUME 7.8 fl (7.5-11.1); MONO % 7.2 % (3.8-10.2); NEUT % 62.3 % (42.8-82.8); PLATELET COUNT 229 K/MM3 (134-434); RBC 3.19 M/mm3 (3.60-5.2)
[2017-04-06] MEDS ORDERED: PACLITAXEL 138 MG in SODIUM CHLORIDE 250 ML IVPB ONE (10:30)
[2017-04-06 10:42] LABS: ALBUMIN 3.3 g/dl (3.4-5.0); ALK PHOS 106 U/L (45-117); ANION GAP 6 (8-16); BILIRUBIN,DIRECT < 0.2 mg/dL (0.0-0.2); BILIRUBIN,TOTAL 0.3 mg/dL (0.2-1.0); BLOOD UREA NITROGEN 12 mg/dL (7-18); CALCIUM 8.9 mg/dL (8.5-10.1); CHLORIDE 108 mmol/L (98-107); CO2 26 mmol/L (21-32); CREATININE 0.9 mg/dL (0.55-1.02); GLUCOSE,RANDOM 114 mg/dL (74-106); MAGNESIUM 2.3 mg/dL (1.8-2.4); POTASSIUM 4.3 mmol/L (3.5-5.1); SGOT/AST 18 U/L (15-37); SGPT/ALT 36 U/L (12-78); SODIUM 140 mmol/L (136-145)
[2017-04-06 11:10] VITALS: BP 122/82; PULSE 89; TEMP 98.2
[2017-04-06] MEDS ORDERED: PORTA CATH FLUSH 10 ML IVPUSH ONE (11:10)
[2017-04-06] MEDS ORDERED: SODIUM CHLORIDE 250 ML IV ONE ×2 (11:15→13:30)
[2017-04-06] MEDS ORDERED: CARBOPLATIN IVPB ONE ×2 (11:30→13:00)
[2017-04-06] MEDS ORDERED: SODIUM CHLORIDE IVPB ONE ×2 (11:30→13:00)
== END 2017-04-06 17:52 | disposition home or self-care (01) ==
LOC: JONCCHEMO 07:32 → J7W 11:19 → JONCCHEMO 17:52
PROVIDERS: ATTEND Internal Medicine Hematology & Oncology
PROC: 3E04305 Introduction of Other Antineoplastic into Central Vein, Percutaneous Approach (ICD-10-PCS; principal; 2017-04-06)
PROC: 3E043GC Introduction of Other Therapeutic Substance into Central Vein, Percutaneous Approach (ICD-10-PCS; 2017-04-06)
PROC: 3E0437Z Introduction of Electrolytic and Water Balance Substance into Central Vein, Percutaneous Approach (ICD-10-PCS; 2017-04-06)
DX: Z51.11 Encounter for antineoplastic chemotherapy (principal); C56.9 Malignant neoplasm of unspecified ovary
CPT/HCPCS: 36415; 80053; 80076; 83735; 85025; 96361; 96367; 96375; 96413; 96417; J1100; J2469

== ENCOUNTER 2017-04-13 07:30 | Day surgery (SDC) | payer OTHER ==
[2017-04-13 09:28] VITALS: PULSE 97; TEMP 98.3
[2017-04-13 10:00] LABS: BASO % 0.3 % (0-2.0); EOS % 0.2 % (0-4.5); HEMATOCRIT 28.2 % (32.4-45.2); HEMOGLOBIN 9.2 GM/dL (10.7-15.3); LYMPH % 26.3 % (8-40); MCH 29.7 pg (25.7-33.7); MCHC 32.6 g/dl (32.0-36.0); MEAN CELL VOLUME 91.2 fl (80-96); MEAN PLT VOLUME 8.1 fl (7.5-11.1); MONO % 11.8 % (3.8-10.2); NEUT % 61.4 % (42.8-82.8); PLATELET COUNT 199 K/MM3 (134-434); RDW 21.4 % (11.6-15.6); WHITE BLOOD COUNT 4.9 K/mm3 (4.0-10.0)
[2017-04-13] MEDS ORDERED: DEXAMETHASONE INJECTION 20 MG, RANITIDINE INJECTION 50 MG, DIPHENHYDRAMINE 50 MG in SOD... IVPB ONE (10:00)
[2017-04-13] MEDS ORDERED: PALONOSETRON HCL 0.25 MG/5 ML VIAL IVPUSH ONE (10:00)
[2017-04-13 10:10] LABS: ADD RBC MORPHOLOGY YES
[2017-04-13] MEDS ORDERED: PACLITAXEL 138 MG in SODIUM CHLORIDE 250 ML IVPB ONE (10:30)
[2017-04-13 10:47] LABS: ALBUMIN 3.4 g/dl (3.4-5.0); ANION GAP 8 (8-16); BILIRUBIN,DIRECT < 0.2 mg/dL (0.0-0.2); BLOOD UREA NITROGEN 12 mg/dL (7-18); CALCIUM 8.8 mg/dL (8.5-10.1); CHLORIDE 106 mmol/L (98-107); CO2 25 mmol/L (21-32); GLUCOSE,RANDOM 106 mg/dL (74-106); MAGNESIUM 1.9 mg/dL (1.8-2.4); POTASSIUM 3.8 mmol/L (3.5-5.1); SODIUM 139 mmol/L (136-145)
[2017-04-13 10:50] LABS: ALK PHOS 121 U/L (45-117); BILIRUBIN,TOTAL 0.3 mg/dL (0.2-1.0); CREATININE 0.6 mg/dL (0.55-1.02); SGOT/AST 17 U/L (15-37); SGPT/ALT 27 U/L (12-78); TOT PROT 6.9 g/dl (6.4-8.2)
[2017-04-13] MEDS ORDERED: SODIUM CHLORIDE 250 ML IV SCH ×2 (11:15→13:00)
[2017-04-13 14:05] LABS: ANISOCYTOSIS 2+; PLATELET ESTIMATE NORMAL
[2017-04-13 15:20] VITALS: BP 120/69
[2017-04-13] MEDS ORDERED: PORTA CATH FLUSH 10 ML IVPUSH ONE (15:20)
== END 2017-04-13 15:15 | disposition home or self-care (01) ==
LOC: JONCCHEMO 07:30 → J7W 10:40 → JONCCHEMO 15:15
PROVIDERS: ATTEND Internal Medicine Hematology & Oncology
DX: Z51.11 Encounter for antineoplastic chemotherapy (principal); C56.9 Malignant neoplasm of unspecified ovary
CPT/HCPCS: 36415; 80053; 80076; 83735; 85025; 96361; 96366; 96367; 96375; 96411; 96413; J1100; J2469

== ENCOUNTER 2017-04-16 07:31 | Day surgery (SDC) | payer OTHER ==
[2017-04-16 11:04] LABS: HEMATOCRIT 26.9 % (32.4-45.2); HEMOGLOBIN 8.8 GM/dL (10.7-15.3); MCH 29.9 pg (25.7-33.7); MCHC 32.5 g/dl (32.0-36.0); MEAN PLT VOLUME 8.2 fl (7.5-11.1); PLATELET COUNT 173 K/MM3 (134-434); RBC 2.93 M/mm3 (3.60-5.2); RDW 20.9 % (11.6-15.6); WHITE BLOOD COUNT 17.4 K/mm3 (4.0-10.0)
[2017-04-16] MEDS ORDERED: SODIUM CHLORIDE 1,000 ML IV SCH (12:00)
[2017-04-16] MEDS ORDERED: PORTA CATH FLUSH 10 ML IVPUSH ONE (13:46)
[2017-04-16 17:38] VITALS: BP 107/67; PULSE 100; TEMP 98.1
== END 2017-04-16 17:41 | disposition home or self-care (01) ==
LOC: JONCBLOOD 07:31 → J7W 10:18 → JONCBLOOD 17:41
PROVIDERS: ATTEND Internal Medicine Hematology & Oncology
PROC: 30233N1 Transfusion of Nonautologous Red Blood Cells into Peripheral Vein, Percutaneous Approach (ICD-10-PCS; principal; 2017-04-16)
DX: D64.81 Anemia due to antineoplastic chemotherapy (principal); C56.9 Malignant neoplasm of unspecified ovary
CPT/HCPCS: 36415; 36430; 83735; 85027; 86850; 86900; 86901; 86922; P9038; P9058

== ENCOUNTER 2017-04-20 07:48 | Day surgery (SDC) | payer OTHER ==
[2017-04-20] MEDS ORDERED: PALONOSETRON HCL 0.25 MG/5 ML VIAL IVPUSH ONE (08:00)
[2017-04-20] MEDS ORDERED: DEXAMETHASONE INJECTION 20 MG, RANITIDINE INJECTION 50 MG, DIPHENHYDRAMINE 50 MG in SOD... IVPB ONE (08:00)
[2017-04-20] MEDS ORDERED: PACLITAXEL 138 MG in SODIUM CHLORIDE 250 ML IVPB ONE (08:30)
[2017-04-20 09:53] LABS: BASO % 0.2 % (0-2.0); EOS % 0.1 % (0-4.5); HEMATOCRIT 30.6 % (32.4-45.2); HEMOGLOBIN 10.2 GM/dL (10.7-15.3); LYMPH % 19.3 % (8-40); MCH 30.1 pg (25.7-33.7); MCHC 33.2 g/dl (32.0-36.0); MEAN CELL VOLUME 90.5 fl (80-96); MEAN PLT VOLUME 8.1 fl (7.5-11.1); MONO % 5.6 % (3.8-10.2); NEUT % 74.8 % (42.8-82.8); PLATELET COUNT 161 K/MM3 (134-434); RBC 3.39 M/mm3 (3.60-5.2); RDW 19.6 % (11.6-15.6); WHITE BLOOD COUNT 7.5 K/mm3 (4.0-10.0)
[2017-04-20 10:42] LABS: ALBUMIN 3.6 g/dl (3.4-5.0); ANION GAP 7 (8-16); BILIRUBIN,DIRECT < 0.2 mg/dL (0.0-0.2); BLOOD UREA NITROGEN 13 mg/dL (7-18); CALCIUM 9.3 mg/dL (8.5-10.1); CHLORIDE 105 mmol/L (98-107); CO2 29 mmol/L (21-32); GLUCOSE,RANDOM 81 mg/dL (74-106); POTASSIUM 3.8 mmol/L (3.5-5.1); SODIUM 141 mmol/L (136-145)
[2017-04-20 10:45] LABS: ALK PHOS 122 U/L (45-117); BILIRUBIN,TOTAL 0.3 mg/dL (0.2-1.0); CREATININE 0.6 mg/dL (0.55-1.02); SGOT/AST 17 U/L (15-37); SGPT/ALT 27 U/L (12-78); TOT PROT 7.2 g/dl (6.4-8.2)
[2017-04-20 12:13] LABS: AMYLASE 69 U/L (25-115); LIPASE 153 U/L (73-393)
[2017-04-20 17:36] VITALS: BP 100/59; PULSE 92; TEMP 97.9
[2017-04-20] MEDS ORDERED: PORTA CATH FLUSH 10 ML IVPUSH ONE (17:36)
== END 2017-04-20 14:35 | disposition home or self-care (01) ==
LOC: JONCCHEMO 07:48 → J7W 10:40 → JONCCHEMO 14:35
PROVIDERS: ATTEND Internal Medicine Hematology & Oncology
DX: Z51.11 Encounter for antineoplastic chemotherapy (principal); C56.9 Malignant neoplasm of unspecified ovary
CPT/HCPCS: 36415; 80053; 80076; 82150; 83690; 83735; 85025; 96365; 96367; 96375; J1100; J2469

== ENCOUNTER 2017-04-27 07:31 | Day surgery (SDC) | payer OTHER ==
[2017-04-27] MEDS ORDERED: PALONOSETRON HCL 0.25 MG/5 ML VIAL IVPUSH ONE (08:00)
[2017-04-27] MEDS ORDERED: DEXAMETHASONE INJECTION 20 MG, DIPHENHYDRAMINE 50 MG, RANITIDINE INJECTION 50 MG in SOD... IVPB ONE (08:00)
[2017-04-27] MEDS ORDERED: PACLITAXEL 138 MG in SODIUM CHLORIDE 250 ML IVPB ONE (08:30)
[2017-04-27 10:22] LABS: BASO % 0.2 % (0-2.0); EOS % 0.1 % (0-4.5); HEMATOCRIT 31.1 % (32.4-45.2); HEMOGLOBIN 10.2 GM/dL (10.7-15.3); LYMPH % 25.3 % (8-40); MCH 30.7 pg (25.7-33.7); MCHC 32.9 g/dl (32.0-36.0); MEAN CELL VOLUME 93.4 fl (80-96); MEAN PLT VOLUME 8.7 fl (7.5-11.1); MONO % 8.3 % (3.8-10.2); NEUT % 66.1 % (42.8-82.8); PLATELET COUNT 137 K/MM3 (134-434); RBC 3.33 M/mm3 (3.60-5.2); RDW 19.8 % (11.6-15.6); WHITE BLOOD COUNT 5.5 K/mm3 (4.0-10.0)
[2017-04-27 10:46] LABS: ALBUMIN 3.7 g/dl (3.4-5.0); ALK PHOS 120 U/L (45-117); ANION GAP 6 (8-16); BILIRUBIN,DIRECT < 0.2 mg/dL (0.0-0.2); BILIRUBIN,TOTAL 0.2 mg/dL (0.2-1.0); BLOOD UREA NITROGEN 12 mg/dL (7-18); CALCIUM 8.9 mg/dL (8.5-10.1); CHLORIDE 107 mmol/L (98-107); CO2 27 mmol/L (21-32); CREATININE 0.7 mg/dL (0.55-1.02); GLUCOSE,RANDOM 95 mg/dL (74-106); MAGNESIUM 2.2 mg/dL (1.8-2.4); SGOT/AST 18 U/L (15-37); SGPT/ALT 39 U/L (12-78); SODIUM 140 mmol/L (136-145)
[2017-04-27 10:47] LABS: TOT PROT 7.1 g/dl (6.4-8.2)
[2017-04-27] MEDS ORDERED: SODIUM CHLORIDE 500 ML IV ONE (12:00)
[2017-04-27 12:24] VITALS: TEMP 98.2
[2017-04-27 17:37] VITALS: BP 108/80; PULSE 92
== END 2017-04-27 17:39 | disposition home or self-care (01) ==
LOC: JONCCHEMO 07:31 → J7W 11:07 → JONCCHEMO 17:39
PROVIDERS: ATTEND Internal Medicine Hematology & Oncology
DX: Z51.11 Encounter for antineoplastic chemotherapy (principal); C56.9 Malignant neoplasm of unspecified ovary
CPT/HCPCS: 36415; 80053; 80076; 83735; 85025; 96361; 96367; 96375; 96413; 96417; J1100; J2469

== ENCOUNTER 2017-05-04 07:35 | Day surgery (SDC) | payer OTHER ==
[~2017-05-04 07:35] MED LIST: SODIUM CHLORIDE 250 ML IV SCH
[2017-05-04] MEDS ORDERED: PALONOSETRON HCL 0.25 MG/5 ML VIAL IVPUSH ONE (08:00)
[2017-05-04] MEDS ORDERED: DEXAMETHASONE INJECTION 20 MG, DIPHENHYDRAMINE 50 MG, RANITIDINE INJECTION 50 MG in SOD... IVPB ONE (08:00)
[2017-05-04] MEDS ORDERED: PACLITAXEL 138 MG in SODIUM CHLORIDE 250 ML IVPB ONE (08:30)
[2017-05-04] MEDS ORDERED: SODIUM CHLORIDE 250 ML IV SCH (09:30)
[2017-05-04 09:40] LABS: BASO % 0.2 % (0-2.0); EOS % 0.2 % (0-4.5); HEMATOCRIT 29.6 % (32.4-45.2); HEMOGLOBIN 9.7 GM/dL (10.7-15.3); LYMPH % 33.6 % (8-40); MCHC 32.9 g/dl (32.0-36.0); MEAN CELL VOLUME 94.2 fl (80-96); MEAN PLT VOLUME 8.1 fl (7.5-11.1); MONO % 6.4 % (3.8-10.2); NEUT % 59.6 % (42.8-82.8); PLATELET COUNT 99 K/MM3 (134-434); RBC 3.14 M/mm3 (3.60-5.2); RDW 19.1 % (11.6-15.6); WHITE BLOOD COUNT 3.6 K/mm3 (4.0-10.0)
[2017-05-04 10:23] LABS: ALBUMIN 3.5 g/dl (3.4-5.0); ANION GAP 6 (8-16); BLOOD UREA NITROGEN 11 mg/dL (7-18); CALCIUM 8.8 mg/dL (8.5-10.1); CHLORIDE 105 mmol/L (98-107); CO2 28 mmol/L (21-32); GLUCOSE,RANDOM 99 mg/dL (74-106); POTASSIUM 3.7 mmol/L (3.5-5.1); SODIUM 139 mmol/L (136-145)
[2017-05-04 10:27] LABS: ALK PHOS 119 U/L (45-117); BILIRUBIN,DIRECT < 0.2 mg/dL (0.0-0.2); BILIRUBIN,TOTAL 0.5 mg/dL (0.2-1.0); CREATININE 0.5 mg/dL (0.55-1.02); SGOT/AST 10 U/L (15-37); SGPT/ALT 24 U/L (12-78)
[2017-05-04 10:44] VITALS: TEMP 98.1
[2017-05-04 16:48] VITALS: BP 103/72; PULSE 87
== END 2017-05-04 15:05 | disposition home or self-care (01) ==
LOC: JONCCHEMO 07:35 → J7W 10:52 → JONCCHEMO 15:05
PROVIDERS: ATTEND Internal Medicine Hematology & Oncology
DX: Z51.11 Encounter for antineoplastic chemotherapy (principal); C56.9 Malignant neoplasm of unspecified ovary
CPT/HCPCS: 36415; 80053; 80076; 83735; 85025; 96361; 96367; 96375; 96413; J1100; J2469

== ENCOUNTER 2017-05-11 07:27 | Day surgery (SDC) | payer OTHER ==
[2017-05-11] MEDS ORDERED: PALONOSETRON HCL 0.25 MG/5 ML VIAL IVPUSH ONE (08:00)
[2017-05-11] MEDS ORDERED: DEXAMETHASONE INJECTION 10 MG, DIPHENHYDRAMINE 50 MG, RANITIDINE INJECTION 50 MG in SOD... IVPB ONE (08:00)
[2017-05-11] MEDS ORDERED: PACLITAXEL 138 MG in SODIUM CHLORIDE 250 ML IVPB ONE (08:30)
[2017-05-11 10:01] LABS: BASO % 0.2 % (0-2.0); EOS % 0.1 % (0-4.5); HEMATOCRIT 26.9 % (32.4-45.2); LYMPH % 37.9 % (8-40); MCH 31.4 pg (25.7-33.7); MCHC 33.4 g/dl (32.0-36.0); MEAN CELL VOLUME 94.1 fl (80-96); MEAN PLT VOLUME 8.3 fl (7.5-11.1); MONO % 6.7 % (3.8-10.2); NEUT % 55.1 % (42.8-82.8); PLATELET COUNT 83 K/MM3 (134-434); RBC 2.86 M/mm3 (3.60-5.2); RDW 18.7 % (11.6-15.6); WHITE BLOOD COUNT 3.6 K/mm3 (4.0-10.0)
[2017-05-11] MEDS ORDERED: SODIUM CHLORIDE 1,000 ML IV SCH (10:45)
[2017-05-11] MEDS ORDERED: SODIUM CHLORIDE 500 ML IV SCH (10:45)
[2017-05-11 11:33] LABS: ALBUMIN 3.5 g/dl (3.4-5.0); ANION GAP 7 (8-16); BILIRUBIN,DIRECT < 0.2 mg/dL (0.0-0.2); BLOOD UREA NITROGEN 14 mg/dL (7-18); CALCIUM 9.1 mg/dL (8.5-10.1); CHLORIDE 106 mmol/L (98-107); CO2 29 mmol/L (21-32); GLUCOSE,RANDOM 80 mg/dL (74-106); MAGNESIUM 2.2 mg/dL (1.8-2.4); POTASSIUM 3.8 mmol/L (3.5-5.1); SGOT/AST 27 U/L (15-37); SGPT/ALT 46 U/L (12-78); SODIUM 142 mmol/L (136-145)
[2017-05-11 11:35] LABS: ALK PHOS 105 U/L (45-117); BILIRUBIN,TOTAL 0.4 mg/dL (0.2-1.0); CREATININE 0.6 mg/dL (0.55-1.02); TOT PROT 6.9 g/dl (6.4-8.2)
[2017-05-11] MEDS ORDERED: PORTA CATH FLUSH 10 ML IVPUSH ONE ×2 (14:34→14:38)
[2017-05-11 14:35] VITALS: TEMP 98.5
[2017-05-11 17:12] VITALS: BP 98/63; PULSE 102
== END 2017-05-11 15:45 | disposition home or self-care (01) ==
LOC: JONCCHEMO 07:27 → J7W 10:50 → JONCCHEMO 15:45
PROVIDERS: ATTEND Internal Medicine Hematology & Oncology
DX: Z51.11 Encounter for antineoplastic chemotherapy (principal); C56.9 Malignant neoplasm of unspecified ovary
CPT/HCPCS: 36415; 80053; 80076; 83735; 85025; 96361; 96367; 96375; 96411; 96413; J1100; J2469

== ENCOUNTER 2017-05-13 07:35 | Day surgery (SDC) | payer OTHER ==
[2017-05-13 10:24] LABS: HEMATOCRIT 23.9 % (32.4-45.2); MCH 31.6 pg (25.7-33.7); MCHC 33.3 g/dl (32.0-36.0); MEAN PLT VOLUME 8.8 fl (7.5-11.1); PLATELET COUNT 72 K/MM3 (134-434); RBC 2.52 M/mm3 (3.60-5.2); RDW 18.5 % (11.6-15.6); WHITE BLOOD COUNT 2.1 K/mm3 (4.0-10.0)
[2017-05-13 10:42] LABS: ALBUMIN 3.3 g/dl (3.4-5.0); ALK PHOS 94 U/L (45-117); ANION GAP 6 (8-16); BILIRUBIN,TOTAL 0.3 mg/dL (0.2-1.0); BLOOD UREA NITROGEN 15 mg/dL (7-18); CALCIUM 8.5 mg/dL (8.5-10.1); CHLORIDE 108 mmol/L (98-107); CO2 27 mmol/L (21-32); CREATININE 0.6 mg/dL (0.55-1.02); GLUCOSE,RANDOM 77 mg/dL (74-106); MAGNESIUM 2.1 mg/dL (1.8-2.4); POTASSIUM 3.6 mmol/L (3.5-5.1); SGOT/AST 21 U/L (15-37); SGPT/ALT 42 U/L (12-78); SODIUM 141 mmol/L (136-145); TOT PROT 6.5 g/dl (6.4-8.2)
[2017-05-13] MEDS ORDERED: PORTA CATH FLUSH 10 ML IVPUSH ONE (16:00)
[2017-05-13 20:02] VITALS: BP 102/60; PULSE 90; TEMP 98
== END 2017-05-13 16:00 | disposition home or self-care (01) ==
LOC: JONCBLOOD 07:35 → J7W 09:18 → JONCBLOOD 16:00
PROVIDERS: ATTEND Internal Medicine Hematology & Oncology
PROC: 30233N1 Transfusion of Nonautologous Red Blood Cells into Peripheral Vein, Percutaneous Approach (ICD-10-PCS; principal; 2017-05-13)
DX: D70.1 Agranulocytosis secondary to cancer chemotherapy (principal); C56.9 Malignant neoplasm of unspecified ovary
CPT/HCPCS: 36415; 36430; 80053; 83735; 85027; 86850; 86900; 86901; 86922; P9038; P9058

== ENCOUNTER 2017-05-18 07:27 | Day surgery (SDC) | payer OTHER ==
[2017-05-18 12:22] LABS: BASO % 0.2 % (0-2.0); EOS % 0.1 % (0-4.5); HEMATOCRIT 28.4 % (32.4-45.2); HEMOGLOBIN 9.5 GM/dL (10.7-15.3); LYMPH % 34.1 % (8-40); MCH 31.7 pg (25.7-33.7); MCHC 33.3 g/dl (32.0-36.0); MEAN CELL VOLUME 95.3 fl (80-96); MEAN PLT VOLUME 8.5 fl (7.5-11.1); MONO % 6.9 % (3.8-10.2); NEUT % 58.7 % (42.8-82.8); PLATELET COUNT 61 K/MM3 (134-434); RBC 2.98 M/mm3 (3.60-5.2); RDW 18.3 % (11.6-15.6); WHITE BLOOD COUNT 3.6 K/mm3 (4.0-10.0)
[2017-05-18 12:44] LABS: ALBUMIN 3.4 g/dl (3.4-5.0); ANION GAP 8 (8-16); BILIRUBIN,DIRECT < 0.2 mg/dL (0.0-0.2); BILIRUBIN,TOTAL 0.3 mg/dL (0.2-1.0); BLOOD UREA NITROGEN 13 mg/dL (7-18); CALCIUM 8.6 mg/dL (8.5-10.1); CHLORIDE 105 mmol/L (98-107); CO2 30 mmol/L (21-32); CREATININE 0.7 mg/dL (0.55-1.02); GLUCOSE,RANDOM 146 mg/dL (74-106); MAGNESIUM 2.2 mg/dL (1.8-2.4); POTASSIUM 3.7 mmol/L (3.5-5.1); SGOT/AST 13 U/L (15-37); SGPT/ALT 25 U/L (12-78); SODIUM 143 mmol/L (136-145)
[2017-05-18 12:45] LABS: ALK PHOS 107 U/L (45-117)
[2017-05-18] MEDS ORDERED: SODIUM CHLORIDE 1,000 ML IV SCH (13:00)
[2017-05-18 16:11] VITALS: TEMP 98.6
[2017-05-18 16:12] VITALS: BP 93/57; PULSE 100
== END 2017-05-18 16:00 | disposition home or self-care (01) ==
LOC: JONCCHEMO 07:27 → J7W 12:45 → JONCCHEMO 16:00
PROVIDERS: ATTEND Internal Medicine Hematology & Oncology
PROC: 3E033GC Introduction of Other Therapeutic Substance into Peripheral Vein, Percutaneous Approach (ICD-10-PCS; principal; 2017-05-18)
DX: C56.9 Malignant neoplasm of unspecified ovary (principal); D70.1 Agranulocytosis secondary to cancer chemotherapy
CPT/HCPCS: 36415; 80053; 80076; 83735; 85025; 96360; 96361; J7030

== ENCOUNTER 2017-05-25 07:24 | Day surgery (SDC) | payer OTHER ==
[2017-05-25 09:20] LABS: BASO % 0.3 % (0-2.0); EOS % 0.1 % (0-4.5); HEMATOCRIT 29.1 % (32.4-45.2); HEMOGLOBIN 9.6 GM/dL (10.7-15.3); LYMPH % 25.9 % (8-40); MCH 32.2 pg (25.7-33.7); MEAN CELL VOLUME 97.7 fl (80-96); MONO % 9.1 % (3.8-10.2); NEUT % 64.6 % (42.8-82.8); PLATELET COUNT 124 K/MM3 (134-434); RBC 2.98 M/mm3 (3.60-5.2); RDW 20.3 % (11.6-15.6); WHITE BLOOD COUNT 4.9 K/mm3 (4.0-10.0)
[2017-05-25] MEDS ORDERED: SODIUM CHLORIDE 1,000 ML IV SCH ×2 (09:30→09:33)
[2017-05-25 09:45] LABS: ALBUMIN 3.6 g/dl (3.4-5.0); ALK PHOS 120 U/L (45-117); ANION GAP 7 (8-16); BILIRUBIN,DIRECT < 0.2 mg/dL (0.0-0.2); BILIRUBIN,TOTAL 0.3 mg/dL (0.2-1.0); BLOOD UREA NITROGEN 12 mg/dL (7-18); CALCIUM 8.8 mg/dL (8.5-10.1); CHLORIDE 106 mmol/L (98-107); CO2 27 mmol/L (21-32); CREATININE 0.7 mg/dL (0.55-1.02); GLUCOSE,RANDOM 99 mg/dL (74-106); MAGNESIUM 2.1 mg/dL (1.8-2.4); POTASSIUM 3.8 mmol/L (3.5-5.1); SGOT/AST 10 U/L (15-37); SGPT/ALT 18 U/L (12-78); SODIUM 140 mmol/L (136-145); TOT PROT 7.2 g/dl (6.4-8.2)
[2017-05-25 09:57] VITALS: TEMP 98.3
[2017-05-25] MEDS ORDERED: DEXAMETHASONE INJECTION 10 MG, RANITIDINE INJECTION 50 MG, DIPHENHYDRAMINE 50 MG in SOD... IVPB ONE ×2 (10:00)
[2017-05-25] MEDS ORDERED: PALONOSETRON HCL 0.25 MG/5 ML VIAL IVPUSH ONE (10:00)
[2017-05-25] MEDS ORDERED: DEXAMETHASONE INJECTION 20 MG, RANITIDINE INJECTION 50 MG, DIPHENHYDRAMINE 50 MG in SOD... IVPB ONE (10:00)
[2017-05-25] MEDS ORDERED: PACLITAXEL 138 MG in SODIUM CHLORIDE 250 ML IVPB ONE (10:30)
[2017-05-25] MEDS ORDERED: SODIUM CHLORIDE IVPB ONE (11:30)
[2017-05-25] MEDS ORDERED: CARBOPLATIN IVPB ONE (11:30)
[2017-05-25 17:10] VITALS: BP 113/73; PULSE 78
[2017-05-26 08:06] LABS: SERUM IRON SATURATION 41 % (15-55); TOTAL IRON BINDING CAPACITY 199 ug/dL (250-450); UIBC 117 ug/dL (131-425)
== END 2017-05-25 16:40 | disposition home or self-care (01) ==
LOC: JONCCHEMO 07:24 → J7W 08:57 → JONCCHEMO 16:40
PROVIDERS: ATTEND Internal Medicine Hematology & Oncology
DX: Z51.11 Encounter for antineoplastic chemotherapy (principal); C56.9 Malignant neoplasm of unspecified ovary; D70.1 Agranulocytosis secondary to cancer chemotherapy
CPT/HCPCS: 36415; 80053; 80076; 82728; 83540; 83550; 83735; 84439; 84443; 85025; 86304; 96361; 96375; 96413; 96417; J1100; J2469

== ENCOUNTER 2017-06-01 07:24 | Day surgery (SDC) | payer OTHER ==
[2017-06-01 09:51] LABS: HEMATOCRIT 27.9 % (32.4-45.2); HEMOGLOBIN 9.6 GM/dL (10.7-15.3); MCHC 34.5 g/dl (32.0-36.0); MEAN CELL VOLUME 98.5 fl (80-96); PLATELET COUNT 146 K/MM3 (134-434); RBC 2.83 M/mm3 (3.60-5.2); RDW 19.2 % (11.6-15.6); WHITE BLOOD COUNT 5.3 K/mm3 (4.0-10.0)
[2017-06-01] MEDS ORDERED: PALONOSETRON HCL 0.25 MG/5 ML VIAL IVPUSH ONE (10:00)
[2017-06-01] MEDS ORDERED: DEXAMETHASONE INJECTION 10 MG, RANITIDINE INJECTION 50 MG, DIPHENHYDRAMINE 50 MG in SOD... IVPB ONE (10:00)
[2017-06-01 10:22] LABS: ALBUMIN 3.7 g/dl (3.4-5.0); ANION GAP 6 (8-16); BLOOD UREA NITROGEN 16 mg/dL (7-18); CALCIUM 8.8 mg/dL (8.5-10.1); CHLORIDE 106 mmol/L (98-107); CO2 27 mmol/L (21-32); GLUCOSE,RANDOM 90 mg/dL (74-106); MAGNESIUM 2.1 mg/dL (1.8-2.4); POTASSIUM 3.9 mmol/L (3.5-5.1); SGOT/AST 11 U/L (15-37); SGPT/ALT 20 U/L (12-78); SODIUM 139 mmol/L (136-145)
[2017-06-01 10:25] LABS: ALK PHOS 129 U/L (45-117); BILIRUBIN,TOTAL 0.3 mg/dL (0.2-1.0); CREATININE 0.7 mg/dL (0.55-1.02); TOT PROT 7.2 g/dl (6.4-8.2)
[2017-06-01] MEDS ORDERED: PACLITAXEL 138 MG in SODIUM CHLORIDE 250 ML IVPB ONE (10:30)
[2017-06-01] MEDS ORDERED: SODIUM CHLORIDE 1,000 ML IV SCH (11:15)
[2017-06-01 11:20] LABS: ANISOCYTOSIS 1+; PLATELET ESTIMATE NORMAL
[2017-06-01] MEDS ORDERED: SODIUM CHLORIDE 500 ML IV ONE (11:30)
[2017-06-01 16:15] VITALS: TEMP 98
[2017-06-01] MEDS ORDERED: PORTA CATH FLUSH 10 ML IVPUSH ONE (16:15)
[2017-06-01 16:25] VITALS: BP 126/88; PULSE 102
== END 2017-06-01 16:29 | disposition home or self-care (01) ==
LOC: JONCCHEMO 07:24 → J7W 10:34 → JONCCHEMO 16:29
PROVIDERS: ATTEND Internal Medicine Hematology & Oncology
DX: Z51.11 Encounter for antineoplastic chemotherapy (principal); C56.9 Malignant neoplasm of unspecified ovary; D70.1 Agranulocytosis secondary to cancer chemotherapy
CPT/HCPCS: 36415; 80053; 83735; 85025; 96361; 96367; 96375; 96413; J1100; J2469

== ENCOUNTER → 2017-06-15 | Day surgery (SDC) | payer OTHER ==
[~2017-06-15] MED LIST changes: +CARBOPLATIN IVPB ONE; +DEXAMETHASONE INJECTION 10 MG, DIPHENHYDRAMINE 50 MG, RANITIDINE INJECTION 50 MG in SOD... IVPB ONE; +DEXTROSE 5% IVPB ONE; +PACLITAXEL 138 MG in SODIUM CHLORIDE 250 ML IVPB ONE; +PALONOSETRON HCL 0.25 MG/5 ML VIAL IVPUSH ONE; -SODIUM CHLORIDE 250 ML IV SCH; +WATER IVPB ONE
[2017-06-15 10:00] VITALS: BP 118/79; PULSE 89; TEMP 98.4
[2017-06-15 10:46] LABS: BASO % 0.2 % (0-2.0); MCH 32.9 pg (25.7-33.7); MCHC 33.4 g/dl (32.0-36.0); MEAN CELL VOLUME 98.4 fl (80-96); MONO % 6.9 % (3.8-10.2); NEUT % 69.9 % (42.8-82.8); PLATELET COUNT 73 K/MM3 (134-434); RBC 2.74 M/mm3 (3.60-5.2); RDW 20.6 % (11.6-15.6); WHITE BLOOD COUNT 4.9 K/mm3 (4.0-10.0)
[2017-06-15 11:09] LABS: ALBUMIN 3.5 g/dl (3.4-5.0); ALK PHOS 118 U/L (45-117); ANION GAP 9 (8-16); BILIRUBIN,DIRECT < 0.2 mg/dL (0.0-0.2); BILIRUBIN,TOTAL 0.2 mg/dL (0.2-1.0); BLOOD UREA NITROGEN 10 mg/dL (7-18); CALCIUM 8.8 mg/dL (8.5-10.1); CHLORIDE 105 mmol/L (98-107); CO2 27 mmol/L (21-32); CREATININE 0.7 mg/dL (0.55-1.02); GLUCOSE,RANDOM 108 mg/dL (74-106); MAGNESIUM 2.3 mg/dL (1.8-2.4); SGOT/AST 14 U/L (15-37); SGPT/ALT 21 U/L (12-78); SODIUM 141 mmol/L (136-145); TOT PROT 6.8 g/dl (6.4-8.2)
== END | disposition home or self-care (01) ==
LOC: JONCCHEMO 07:26
PROVIDERS: ATTEND Internal Medicine Hematology & Oncology
PROC: 0JPVXVZ Removal of Infusion Pump from Upper Extremity Subcutaneous Tissue and Fascia, External Approach (ICD-10-PCS; principal; 2017-06-15)
DX: Z53.8 Procedure and treatment not carried out for other reasons (principal)
CPT/HCPCS: 36415; 80053; 80076; 83735; 85025